=== PATIENT | male | born 1945 | race Caucasian/White ===

== ENCOUNTER 2017-10-11 11:11 | Emergency (ER) | payer MEDICARE ==
--- NOTE | 2017-10-11 13:12 | RAD ---
INDICATION: Bilateral hip pain COMPARISON: CT August 04, 2016 TECHNIQUE: An AP view of the pelvis and AP views of the hip in neutral and abducted position were obtained FINDINGS: Bones: There are no acute bony findings. Joint spaces: There is mild narrowing about the right hip joint space with sclerosis about the acetabulum. There is advanced narrowing about the left hip joint space with obliteration of joint space superiorly. There is sclerosis acetabulum. There is mild deformity of the femoral head with bony spur formation. SI joints/symphysis: The SI joints and symphysis are intact. Other: There is spurring of the lower lumbar spine. There are vascular calcifications. IMPRESSION: MILD OSTEOARTHRITIC CHANGE RIGHT HIP. ADVANCED OSTEOARTHRITIC CHANGE LEFT
--- NOTE | 2017-10-11 13:19 | RAD ---
INDICATION: Low back pain COMPARISON: December 10, 2012 TECHNIQUE: Routine PA, lateral, and oblique imaging was performed . FINDINGS: Bones: There are no acute bony findings. There are arthritic changes consisting of prominent multilevel degenerative spur formation with endplate sclerosis. There is facet overgrowth at L4-L5 and L5-S1. Alignment: Normal Disc spaces: There is moderate narrowing about L4-L5 Soft tissues: There are no soft tissue abnormalities. IMPRESSION: MULTILEVEL DEGENERATIVE SPURRING. DEGENERATIVE DISEASE L4-L5. NO ACUTE FINDINGS. NO SIGNIFICANT INTERVAL CHANGES.
--- NOTE | 2017-10-11 13:32 | ED ---
Back Pain - HPI Summary HPI Summary: 72 male presents to ED with complaints of worsening lower back/hip pain that began about 2 weeks ago. Patient states he has known arthritis but this pain feels a little worse than normal. States it sometimes radiates into his knees. No abdominal pain, upper/mid back pain, weakness, numbness/tingling, saddle anesthesia and trauma/injury. Does admit to playing golf, exercising and recently helped clean up a tree. States he tries to continue being active, but feels it worsens his pain at times. No bladder/bowel incontinence or urinary symptoms. No know tick bite or concern for lymes disease. Denies fever/chills, vomiting, rash and bruising. No swelling. PMHx includes HTN and high cholesterol that he takes medication for. No other complaints. Has tried aleve and then switched to tylenol, both gave some relief however not completely. States this morning when he went from standing to sitting on toilet he had excruciating pain. Changing positions worsens his pain. - History of Current Complaint Chief Complaint: EDBackInjuryPain Stated Complaint: BACK/HIP PAIN Time Seen by Provider: 10/11/17 11:32 Hx Obtained From: Patient Onset/Duration: Sudden Onset, Lasting Weeks, Still Present, Worse Since Onset/Duration: Started Weeks Ago, Still Present, Worse Since Timing: Constant Back Pain Location: Is Discrete @ - lower back/hips. began on left and then into right side, knees Severity Initially: Mild Severity Currently: Moderate Pain Intensity: 9 Pain Scale Used: 0-10 Numeric Character: Dull, Aching Aggravating Symptom(s): Movement Alleviating Symptom(s): Rest, Position, OTC Meds Associated Signs And Symptoms: Negative: Swelling, Redness, Bruising, Fever, Weakness, Numbness, Tingling, Abdominal Pain, Flank Pain, Bladder Incontinence, Bowel Incontinence, Pain with Weight Bearing - Risk Factors AAA Risk Factors: Hypertension, Atherosclerosis TAD Risk Factors: Hypertension Cauda Equina Risk Factors: Negative Epidural Abscess Risk Factors: Negative - Allergies/Home Medications Allergies/Adverse Reactions: Allergies Allergy/AdvReac Type Severity Reaction Status Date / Time No Known Allergies Allergy Verified 10/11/17 11:29 PMH/Surg Hx/FS Hx/Imm Hx Endocrine/Hematology History: Reports: Hx Anticoagulant Therapy - 81MG PO ASA DAILY Cardiovascular History: Reports: Hx Hypercholesterolemia, Hx Hypertension - CONTROLLED WITH DAILY MEDS, Other Cardiovascular Problems/Disorders - CHOLESTEROL CONTROL WITH MEDS Respiratory History: Reports: Hx Sleep Apnea - CPAP user, compliant GI History: Reports: Other GI Disorders - OCCASIONAL CONSTIPATION History: Reports: Hx Benign Prostatic Hyperplasia, Other Problems/ Disorders - ENLARGE PROSTATE HX Musculoskeletal History: Reports: Hx Arthritis - LOW BACK PAIN, Hx Gout, Other Musculoskeletal History - hx cellulitis Sensory History: Reports: Hx Contacts or Glasses - GLASSES, Hx Hearing Aid - BILATERAL EARS, Hx Hearing Problem Opthamlomology History: Reports: Hx Contacts or Glasses - GLASSES Neurological History: Reports: Hx Migraine - NONE IN MANY YEARS, Other Neuro Impairments/Disorders - L-SPINE X-RAYS SHOWED BONE SPURS AND DEGENERATIVE CHANGES - Cancer History Cancer Type, Location and Year: hx skin cancer - Surgical History Surgery Procedure, Year, and Place: RIGHT SHOULDER ROTATOR CUFF REPAIR [facility]. 2002 ING HERNIA REPAIR [facility]. TURP Hx Anesthesia Reactions: No - Immunization History Immunizations Up to Date: Yes Infectious Disease History: No Infectious Disease History: Denies: Traveled Outside the [place] in Last 30 Days - Family History Known Family History: Positive: Hypertension - Social History Alcohol Use: Rare Alcohol Amount: GLASS OF WINE Substance Use Type: Reports: None Smoking Status (MU): Former Smoker Type: Cigarettes Amount Used/How Often: 1 ppd Length of Time of Smoking/Using Tobacco: 23 years Have You Smoked in the Last Year: No Review of Systems Constitutional: Negative Cardiovascular: Negative Respiratory: Negative Gastrointestinal: Negative Positive: Arthralgia, Myalgia Skin: Negative Neurological: Negative All Other Systems Reviewed And Are Negative: Yes Physical Exam Triage Information Reviewed: Yes Vital Signs On Initial Exam: Initial Vitals Temp Pulse Resp BP Pulse Ox 97.2 F 97 18 165/95 96 10/11/17 11:23 10/11/17 11:23 10/11/17 11:23 10/11/17 11:23 10/11/17 11:23 elevated BP however patient is in pain, just took HTN medication [employer] Vital Signs Reviewed: Yes Appearance: Positive: Well-Appearing, No Pain Distress, Well-Nourished Skin: Positive: Warm, Skin Color Reflects Adequate Perfusion, Dry. Negative: Cold, Cyanosis @, Jaundiced, Pale, Erythema @ Head/Face: Positive: Normal Head/Face Inspection Eyes: Positive: Conjunctiva Clear ENT: Positive: Hearing grossly normal Neck: Positive: Supple, Nontender, No Lymphadenopathy Respiratory/Lung Sounds: Positive: Clear to Auscultation, Breath Sounds Present. Negative: Rales, Rhonchi, Wheezes Cardiovascular: Positive: Normal, RRR, Pulses are Symmetrical in both Upper and Lower Extremities - 2+ pedal and radial. Negative: Murmur, Rub Abdomen Description: Positive: Nontender, No Organomegaly, Soft. Negative: CVA Tenderness (R), CVA Tenderness (L), Distended, Peritoneal Signs Bowel Sounds: Positive: Present Musculoskeletal: Positive: Normal, Strength/ROM Intact, Pain @ - with lower extremity movement against resistance, Other - no crepitus step off or obvious deformity. patient does point to pain at b/l lateral L2-L5 level without any spinal tenderness or pain. also in the gluteal hip region. Negative: Limited @ , Interruption @, Edema Left, Edema Right Neurological: Positive: Normal, Sensory/Motor Intact - intact and normal, Alert , Oriented to Person Place, Time, CN Intact II-III, Reflexes Intact, NV Bundle Intact Distally, Normal Gait - Devin Coma Scale Coma Scale Total: 15 Diagnostics - Vital Signs Vital Signs Temp Pulse Resp BP Pulse Ox 10/11/17 11:23 97.2 F 97 18 165/95 96 - Laboratory Result Diagrams: 10/11/17 13:08 10/11/17 13:08 Lab Statement: Any lab studies that have been ordered have been reviewed, and results considered in the medical decision making process. - Radiology hip/pelvis Xray Interpretation: Positive (See Comments) - MILD OSTEOARTHRITIC CHANGE RIGHT HIP. ADVANCED OSTEOARTHRITIC CHANGE LEFT Radiology Interpretation Completed By: Radiologist - and myself lumbosacral spine Xray Interpretation: No Acute Changes - MULTILEVEL DEGENERATIVE SPURRING. DEGENERATIVE DISEASE L4-L5. NO ACUTE FINDINGS. NO SIGNIFICANT INTERVAL CHANGES. Radiology Interpretation Completed By: Radiologist Back Pain Course/Dx - Course Course Of Treatment: xrays obtained and showed significant arthritis in hips and low back, that has worsened/advanced when compared. appears to be cause of patient's pain. given toradol and lidoderm patch. labs obtained and unremarkable besides some mild anemia. pending lyme results. patient will be informed once obtained. will give muscle relaxer, steroid and supplement with tylenol to help with pain/arthritis. no other concerning symptoms at this time. no other emergent etiology of concern at this time, without weakness, cauda equina symptoms etc, nomral PE exam and vitals. follow up pcp to discuss possibly beginning daily arthritis medication and for monitoring. Patient is aware of worsening signs and symptoms. - Diagnoses Differential Diagnosis/HQI/PQRI: Positive: Arthritis, Fracture, Herniated Disc, Strain, Sprain Provider Diagnoses: Hip pain, Low back pain, Osteoarthritis Discharge - Discharge Plan Condition: Stable Disposition: HOME Prescriptions: Cyclobenzaprine TAB* [Flexeril 10 MG TAB*] 10 mg PO BEDTIME #10 tab Methylprednisolone [Medrol Dosepak 4 MG*] 4 mg PO .SEE JAY INSTRUCTION #21 tab Patient Education Materials: Osteoarthritis (ED), Arthralgia (ED), Arthritis ( ED) Referrals: Asim Quinteros MD [Primary Care Provider] - Additional Instructions: Take prescribed medication as directed, starting tomorrow. You may take the muscle relaxer tonight at bedtime, and tylenol if needed for breakthrough pain. Take steroid dose pack in the morning as directed. Muscle relaxer (flexeril) at bedtime. Tylenol in between daily, as needed. Try heating pad and rest. Sit in most comfortable position. Also recommend lidoderm patches or icey/hot topical gel to help with pain, please remember to take them off as instructed. Follow up with primary care doc to discuss further treatment options to help with your arthritis. Any new or worsening symptoms please return and seek medical attention as we discussed.
[2017-10-11 13:34] LABS: Hematocrit 39 % (42-52); Hemoglobin 13.1 g/dl (14.0-18.0); Mean Corpuscular HGB Conc 34 g/dl (31-36); Mean Corpuscular Hemoglobin 29 pg (27-31); Mean Corpuscular Volume 84 fL (80-94); Mean Platelet Volume 8 um3 (7.4-10.4); Red Blood Count 4.61 10^6/ul (4.0-5.4); Red Cell Distribution Width 15 % (10.5-15); White Blood Count 11.5 10^3/ul (3.5-10.8)
[2017-10-11 13:45] LABS: Albumin 3.9 g/dL (3.2-5.2); BUN/Creatinine Ratio 17.7 (8-20); C Reactive Protein 4.95 mg/L (< 5.00); Calcium 9.7 mg/dL (8.6-10.3); EGFR African American 124.3 (>60); EGFR Non-African American 96.7 (>60); Globulin 2.8 g/dL (2-4); Potassium 3.8 mmol/L (3.5-5.0); Total Bilirubin 0.5 mg/dL (0.2-1.0); Total Protein 6.7 g/dL (6.4-8.9)
[2017-10-11] MEDS ORDERED: Ketorolac INJ* 30 MG/ML 1 ML VIAL IM ONE (13:46)
[2017-10-11] MEDS ORDERED: predniSONE TAB* 20 MG PO ONE (13:46)
[2017-10-11 14:29] LABS: Urine Bilirubin Negative (Negative); Urine Glucose Negative (Negative); Urine Nitrite Negative (Negative)
[2017-10-11] MEDS ORDERED: Lidocaine PATCH 5%* 1 PATCH ONE (14:41)
[2017-10-11 14:52] VITALS: BP 154/80
[2017-10-11] MEDS ORDERED: Lidocaine PATCH 5%* 1 PATCH TRANSDERM SCH (15:00)
[2017-10-11] MEDS ORDERED: Lidocaine Patch REMOVE* 1 NOTE MISC PATCH OFF SCH (21:00)
[2017-10-17 04:03] LABS: Vitamin D 1,25-Dihydroxy 43 pg/mL (18-64)
== END 2017-10-11 14:50 | disposition home or self-care (01) ==
LOC: ED 11:11
DX: M25.559 Pain in unspecified hip (principal); M54.5 Low back pain; M19.90 Unspecified osteoarthritis, unspecified site
CPT/HCPCS: 36415; 72110; 73523; 80053; 81003; 82306; 82652; 85025; 86140; 86618; 99282; A9270-GY; J1885; J7512

== ENCOUNTER 2018-08-28 08:00 | Inpatient (IN) | payer MEDICARE ==
--- NOTE | 2018-08-17 14:33 | HP ---
HISTORY AND PHYSICAL: DATE OF ADMISSION/SURGERY: 08/28/18 DATE OF OFFICE VISIT: 08/17/18 SURGEON: Geri Alfaro MD * (DICTATED BY FRANK WISEMAN) PROCEDURE: Left total hip arthroplasty. CHIEF COMPLAINT: Left hip pain. HISTORY OF PRESENT ILLNESS: Mr. Fishman is a 73-year-old gentleman with severe left hip pain. He has failed conservative treatment and elected to proceed with a left total hip arthroplasty. PAST MEDICAL HISTORY: Hypertension, sleep apnea, and BPH. PAST SURGICAL HISTORY: Cholecystectomy, hernia repair, and TURP. CURRENT MEDICATIONS: 1. Lisinopril. 2. Vitamin D. 3. Diltiazem 180 mg 2 tabs daily. 4. Pravastatin sodium 10 mg daily. 5. Triamterene/hydrochlorothiazide 37.5/25 mg daily. 6. Centrum Silver daily. 7. Multivitamin every day. ALLERGIES: None. FAMILY HISTORY: Stroke, coronary artery disease, and colon cancer. SOCIAL HISTORY: He is a 73-year-old gentleman, lives alone. He does not smoke or use drugs. He uses occasional alcohol. REVIEW OF SYSTEMS: A complete 14-point review of systems was reviewed with the patient. It is all negative and noncontributory. He denies history of DVT, PE , hepatitis, HIV, or anesthesia problems. PHYSICAL EXAMINATION GENERAL: He is well developed, well nourished, in no acute distress. VITAL SIGNS: He stands 72 inches tall, weighs 270 pounds. His blood pressure 154/86 and his heart rate is 72. HEENT: Normocephalic, atraumatic. NECK: Supple. No palpable lymph nodes. PULMONARY: The lungs are clear to auscultation bilaterally. CARDIO: Regular rate and rhythm. Strong S1, S2. ABDOMEN: Soft, nontender, nondistended. MUSCULOSKELETAL: Left lower extremity: The skin is intact. There are no open wounds or abrasions. He walks with an antalgic-type gait favoring his left hip. He has 80 degrees of hip flexion with severe pain. Internal and external rotation reproduces severe groin pain, and he has decreased range of motion with internal and external rotation. He has 2+ dorsalis pedis pulse. Intact sensation in his lower extremity. Muscle group strengths are intact at 5/5. NEUROLOGIC: He is alert and oriented x3. ASSESSMENT AND PLAN: Mr. Fishman is a 73-year-old gentleman with end-stage osteoarthritis to the left hip. He has failed conservative treatment and elected to proceed with a left total hip arthroplasty, which is scheduled for with Dr. Alfaro. Dr. Alfaro discussed the risks and the benefits of the surgery at today's visit and all of his questions were answered. He will follow up with Dr. Alfaro 2 weeks after the surgery. FRANK WISEMAN [id number]/[facility] #: [id number]
[~2018-08-28 08:00] MED LIST: Buffered Lidocaine 0.9% SYRIN* 5 ML/SYR SYRINGE INTRADERM ONE; Dexamethasone IV* 4 MG/ML 1 ML (4 MG) IV SLOW PU ONE; Famotidine IV* 10 MG/ML 2 ML (20 mg) IV ONE
--- OUTSIDE RECORDS SUMMARY | 2018-08-28 09:26 | XMS REPORT ---
:1945 External Reference #:[id number] Author Organization [facility] Address [address] [address] [place] [address] Phone [phone] Care Team Providers Name Role Phone Asim Quinteros III, MD Primary Care Physician Unavailable Payers Type Date Identification Numbers Payment Provider Subscriber Health Maintenance Policy Number: Medicare Blue o Theo Ruiz (O) [id number] PayID: [id number] [address] [address] [place] [address] Problems Date Description Provider Status Onset: 01/02/2014 Benign essential hypertension Asim Quinteros M.D. Active Onset: 01/02/2014 Pure hypercholesterolemia Asim Quinteros M.D. Active Onset: 01/02/2014 Benign prostatic hypertrophy with Asim Quinteros M.D. Active outflow obstruction Onset: 02/24/2014 Obstructive sleep apnea of adult Wen Deras DNP, Active RN, [employer]ER-BC Note: Severe on CPAP auto Onset: 09/29/2016 Essential hypertension Asim Quinteros M.D. 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 Vitamin D 02/19 Active Capsules 2000Unit 1 by mouth every day Diltiazem HCL ER 08/10 Active Caps ER 180mg 180ca take two Asim Martin Coated Beads 24HR ps capsules Neli, by mouth M.D. once daily Pravastatin Sodium 07/08 Active Tablets 10mg 90tab 1 by Asim Martin s mouth Neli, every day M.D. Triamterene/Hydrochl 07/08 Active Tablets 37.5-25mg 90tab take one Asim Martin orothiazide s tablet by Neli, mouth M.DDeena once daily Centrum Silver Active Tablets 1 by Unknown / mouth every day [place] 08/24 Hx Tablets 5-325mg 20tab 1-2 tabs Grace Chay /2015 s by mouth Jovan, - every 4 MD 02/19 hours needed for stronger pain Diltiazem HCL ER 07/08 Hx Caps ER 180mg 180ca 2 by Asim Martin /2013 24HR ps mouth Neli, - every day M.D. 08/10 Furosemide 07/08 Hx Tablets 20mg 30tab 1 by Asim Martin s mouth Neli, - every M.D. 06/06 prn Multi For Him 50+ 07/08 Hx Tablets 1 by Asim Martin mouth Neli, - every day M.D. 02/19 Lisinopril 07/08 Hx Tablets 5mg 90tab take one Asim Martin s tablet by Neli, - mouth M.D. 07/12 daily Pravastatin Sodium 00 Hx Tablets 10mg Unknown /0000 - 07/08 Furosemide 00 Hx Tablets 20mg Unknown / - 07/08 Diltiazem CD Hx Caps ER 180mg Unknown / 24HR - 07/08 Lisinopril Hx Tablets 5mg Unknown /0000 - 07/08 Triamterene/Hydrochl Hx Tablets 37.5-25mg Unknown orothiazide / - 07/08 Hydrochlorothiazide Hx Tablets 25mg Unknown / - 12/11 Aspirin Ec Lo-Dose Hx Tablets 81mg 90tab [address] stella german. III, - Asim 10/17 MD Mario Fish Oil Burp-Less Hx Capsules 500mg Unknown / - 01/13 Immunizations CPT Code Status Date Vaccine Lot # [id number] Given 08/18/2017 Pneumococcal Conjugate Vaccine 13 Valent For Intramuscular Use 12012 Given 08/17/2017 Influenza Virus Vaccine, Quadrivalent, Split, Preservative Free [id number] Given 09/29/2016 Tdap - Tetanus/Diptheria/Acellular Pertussis [id number] 75628 Given 08/05/2016 Influenza Virus Vaccine, Quadrivalent, Split, [id number] Preservative Free 72346 Given 01/13/2015 Pneumococcal Conjugate Vaccine 13 Valent For [id number] Intramuscular Use 94363 Given 09/10/2014 Flu Vaccine Split Virus Preservative Free For Indiv [id number] 3Yr Older 21449 Given 09/07/2013 Flu Vaccine Split Virus Preservative Free For Indiv 3Yr Older [id number] Given 08/29/2011 Fluzone Vaccine 66800 Given 11/20/2009 Zoster (Zostavax) 07454 Given 11/20/2009 Pneumonia Vaccine 68304 Given 11/20/2005 Tetanus And Diptheria (Td) For Adult Use Preservative Free Vital Signs Date Vital Result Comment 08/08/2018 Height 72 inches 6'0" Weight 271.00 lb Heart Rate 72 /min BP Systolic Sitting 122 mmHg BP Diastolic Sitting 64 mmHg O2 % BldC Oximetry 97 % BMI (Body Mass Index) 36.8 kg/m2 07/30/2018 Height 72 inches 6'0" Weight 269.00 lb Heart Rate 79 /min BP Systolic 138 mmHg BP Diastolic 76 mmHg Respiratory Rate 12 /min Pain Level 7 BMI (Body Mass Index) 36.5 kg/m2 07/12/2018 Height 72 inches 6'0" Weight 274.00 lb Heart Rate 89 /min BP Systolic Sitting 140 mmHg BP Diastolic Sitting 70 mmHg O2 % BldC Oximetry 95 % BMI (Body Mass Index) 37.2 kg/m2 03/07/2018 Height 72 inches 6'0" Weight 279.00 lb Heart Rate 80 /min BP Systolic Sitting 140 mmHg BP Diastolic Sitting 82 mmHg Respiratory Rate 14 /min O2 % BldC Oximetry 96 % BMI (Body Mass Index) 37.8 kg/m2 10/18/2017 Height 72 inches 6'0" Weight 268.00 lb Heart Rate 80 /min BP Systolic Sitting 128 mmHg BP Diastolic Sitting 68 mmHg Body Temperature 98.2 F O2 % BldC Oximetry 98 % BMI (Body Mass Index) 36.3 kg/m2 06/06/2017 Height 73 inches 6'1" Weight 283.00 lb Heart Rate 85 /min BP Systolic Sitting 142 mmHg BP Diastolic Sitting 78 mmHg Body Temperature 97.9 F O2 % BldC Oximetry 94 % BMI (Body Mass Index) 37.3 kg/m2 02/20/2017 Height 73 inches 6'1" Weight 271.00 lb Heart Rate 109 /min BP Systolic Sitting 166 mmHg BP Diastolic Sitting 94 mmHg Respiratory Rate 14 /min O2 % BldC Oximetry 98 % BMI (Body Mass Index) 35.8 kg/m2 09/29/2016 Height 70.5 inches 5'10.50" Weight 267.00 lb Heart Rate 80 /min BP Systolic 150 mmHg BP Diastolic 80 mmHg O2 % BldC Oximetry 98 % BMI (Body Mass Index) 37.8 kg/m2 08/24/2016 Height 70.5 inches 5'10.50" Weight 264.00 lb Heart Rate 84 /min BP Systolic Sitting 140 mmHg BP Diastolic Sitting 82 mmHg Respiratory Rate 18 /min Body Temperature 98.2 F BMI (Body Mass Index) 37.3 kg/m2 08/05/2016 Height 70.5 inches 5'10.50" Weight 270.00 lb Heart Rate 65 /min BP Systolic 140 mmHg BP Diastolic 80 mmHg Body Temperature 97.5 F O2 % BldC Oximetry 98 % BMI (Body Mass Index) 38.2 kg/m2 02/02/2016 Height 70.5 inches 5'10.50" Weight 283.00 lb Heart Rate 92 /min BP Systolic 138 mmHg BP Diastolic 74 mmHg Respiratory Rate 16 /min O2 % BldC Oximetry 97 % BMI (Body Mass Index) 40.0 kg/m2 07/13/2015 Height 70.5 inches 5'10.50" Weight 284.50 lb Heart Rate 79 /min BP Systolic Sitting 144 mmHg BP Diastolic Sitting 74 mmHg O2 % BldC Oximetry 97 % BMI (Body Mass Index) 40.2 kg/m2 01/13/2015 Height 70.5 inches 5'10.50" Weight 287.75 lb Heart Rate 82 /min BP Systolic Sitting 128 mmHg 148/74 initially BP Diastolic Sitting 70 mmHg 148/74 initially O2 % BldC Oximetry 98 % BMI (Body Mass Index) 40.7 kg/m2 12/12/2014 Height 70.5 inches 5'10.50" Weight 280.00 lb with shoes on Heart Rate 79 /min BP Systolic Sitting 158 mmHg BP Diastolic Sitting 90 mmHg Respiratory Rate 20 /min Body Temperature 97.9 F O2 % BldC Oximetry 98 % BMI (Body Mass Index) 39.6 kg/m2 Neck Circumference in inches 18 07/01/2014 Weight 279.00 lb Heart Rate 82 /min BP Systolic Sitting 126 mmHg BP Diastolic Sitting 82 mmHg 01/02/2014 Height 71.5 inches 5'11.50" Weight 297.00 lb Heart Rate 82 /min BP Systolic Sitting 144 mmHg BP Diastolic Sitting 84 mmHg BMI (Body Mass Index) 40.8 kg/m2 Results Test Date Test Result H/L Range Note Basic Metabolic Panel 07/31/2018 Sodium 136 mmol/L 135-145 Potassium 4.0 mmol/L 3.5-5.0 Chloride 102 mmol/L 101-111 Co2 Carbon Dioxide 28 mmol/L 22-32 Anion Gap 6 mmol/L 2-11 Glucose 167 mg/dL High 70-100 Blood Urea Nitrogen 15 mg/dL 6-24 Creatinine 0.82 mg/dL 0.67-1.17 BUN/Creatinine Ratio 18.3 8-20 Calcium 9.3 mg/dL 8.6-10.3 Egfr Non- 92.4 >60 Egfr 111.7 >60 1 Laboratory test finding 07/12/2018 Hemoglobin A1c 5.8 5-7 Urinalysis Profile 10/11/2017 Urine Color Yellow Urine Appearance Clear Urine Specific [place] 1.008 Low 1.010-1.030 Urine pH 8.0 5-9 Urine Urobilinogen Negative Negative Urine Ketones Negative Negative Urine Protein Negative Negative Urine Leukocytes Negative Negative Urine Blood Negative Negative Urine Nitrite Negative Negative Urine Bilirubin Negative Negative Urine Glucose Negative Negative CBC Auto Diff 10/11/2017 White Blood Count 11.5 10^3/uL High 3.5-10.8 Red Blood Count 4.61 10^6/uL 4.0-5.4 Hemoglobin 13.1 g/dL Low 14.0-18.0 Hematocrit 39 % Low 42-52 Mean Corpuscular Volume 84 fL 80-94 Mean Corpuscular Hemoglobin 29 pg 27-31 Mean Corpuscular HGB Conc 34 g/dL 31-36 Red Cell Distribution Width 15 % 10.5-15 Platelet Count 286 10^3/uL 150-450 Mean Platelet Volume 8 um3 7.4-10.4 Abs Neutrophils 8.5 10^3/uL High 1.5-7.7 Abs Lymphocytes 1.6 10^3/uL 1.0-4.8 Abs Monocytes 0.7 10^3/uL 0-0.8 Abs Eosinophils 0.6 10^3/uL 0-0.6 Abs Basophils 0.1 10^3/uL 0-0.2 Abs Nucleated RBC 0.01 10^3/uL Granulocyte % 74.2 % 38-83 Lymphocyte % 14.0 % Low 25-47 Monocyte % 6.4 % 1-9 Eosinophil % 4.9 % 0-6 Basophil % 0.5 % 0-2 Nucleated Red Blood Cells % 0.1 Comp Metabolic Panel 10/11/2017 Sodium 134 mmol/L 133-145 Potassium 3.8 mmol/L 3.5-5.0 Chloride 101 mmol/L 101-111 Co2 Carbon Dioxide 29 mmol/L 22-32 Anion Gap 4 mmol/L 2-11 Glucose 93 mg/dL 70-100 Blood Urea Nitrogen 14 mg/dL 6-24 Creatinine 0.79 mg/dL 0.67-1.17 BUN/Creatinine Ratio 17.7 8-20 Calcium 9.7 mg/dL 8.6-10.3 Total Protein 6.7 g/dL 6.4-8.9 Albumin 3.9 g/dL 3.2-5.2 Globulin 2.8 g/dL 2-4 Albumin/Globulin Ratio 1.4 1-3 Total Bilirubin 0.50 mg/dL 0.2-1.0 Alkaline Phosphatase 55 U/L 34-104 Alt 17 U/L 7-52 Ast 18 U/L 13-39 Egfr Non- 96.7 >60 Egfr 124.3 >60 2 Laboratory test finding 10/11/2017 C Reactive Protein 4.95 mg/L < 5.00 3 Vitamin D Total 25(Oh) 49.2 ng/mL 20-50 Lyme Disease Serology Negative Negative 4 Vitamin D, 1,25 Dihydroxy 43 pg/mL 18-64 5 Laboratory test finding 09/27/2016 PSA Diagnostic 0.825 ng/mL 0-4.0 6 Laboratory test finding 08/04/2016 Lactic Acid 1.5 mmol/L 0.5-2.0 7 Comp Metabolic Panel 08/04/2016 Sodium 136 mmol/L 133-145 Potassium 3.6 mmol/L 3.5-5.0 Chloride 101 mmol/L 101-111 Co2 Carbon Dioxide 27 mmol/L 22-32 Anion Gap 8 mmol/L 2-11 Glucose 158 mg/dL High 70-100 Blood Urea Nitrogen 15 mg/dL 6-24 Creatinine 0.89 mg/dL 0.67-1.17 BUN/Creatinine Ratio 16.9 8-20 Calcium 8.9 mg/dL 8.6-10.3 Total Protein 6.7 g/dL 6.4-8.9 Albumin 3.9 g/dL 3.2-5.2 Globulin 2.8 g/dL 2-4 Albumin/Globulin Ratio 1.4 1-3 Total Bilirubin 0.40 mg/dL 0.2-1.0 Alkaline Phosphatase 51 U/L 34-104 Alt 25 U/L 7-52 Ast 20 U/L 13-39 Egfr Non- 84.5 >60 Egfr 108.7 >60 8 Laboratory test finding 08/04/2016 Lipase 26 U/L 11.0-82.0 C Reactive Protein 4.56 mg/L < 5.00 9 CBC Auto Diff 08/04/2016 White Blood Count 13.5 10^3/uL High 3.5-10.8 Red Blood Count 4.58 10^6/uL 4.0-5.4 Hemoglobin 13.4 g/dL Low 14.0-18.0 Hematocrit 40 % Low 42-52 Mean Corpuscular Volume 88 fL 80-94 Mean Corpuscular Hemoglobin 29 pg 27-31 Mean Corpuscular HGB Conc 33 g/dL 31-36 Red Cell Distribution Width 14 % 10.5-15 Platelet Count 280 10^3/uL 150-450 Mean Platelet Volume 8 um3 7.4-10.4 Abs Neutrophils 10.2 10^3/uL High 1.5-7.7 Abs Lymphocytes 1.9 10^3/uL 1.0-4.8 Abs Monocytes 0.6 10^3/uL 0-0.8 Abs Eosinophils 0.6 10^3/uL 0-0.6 Abs Basophils 0.1 10^3/uL 0-0.2 Abs Nucleated RBC 0.01 10^3/uL Granulocyte % 75.7 % 38-83 Lymphocyte % 14.4 % Low 25-47 Monocyte % 4.6 % 1-9 Eosinophil % 4.5 % 0-6 Basophil % 0.8 % 0-2 Nucleated Red Blood Cells % 0.1 Urinalysis Profile 08/04/2016 Urine Color Yellow Urine Appearance Clear Urine Specific [place] 1.010 1.010-1.030 Urine pH 6.0 5-9 Urine Urobilinogen Negative Negative Urine Ketones Negative Negative Urine Protein Negative Negative Urine Leukocytes Trace Negative Urine Blood Negative Negative Urine Nitrite Negative Negative Urine Bilirubin Negative Negative Urine Glucose Negative Negative Urine White Blood Cell Trace(0-5/hpf) Absent Urine Red Blood Cell Trace(0-2/hpf) Absent Urine Bacteria Absent Absent Urine Squamous Epithelial Cell Present Absent Urine Culture And 08/04/2016 Urine Culture SEE RESULT BELOW 10 Sensitivities Laboratory test finding 04/17/2015 Rheumatoid Factor <15 IU/mL <15 11 Holly (Antinuclear Antibodies) Negative Negative Cytoplasmic Neutrophilic AB 04/17/2015 C-Anca Negative Negative P-Anca Negative Negative 12 Hla B27 04/17/2015 Hla B27 Negative 13 Hla B27 Interp See Comment 14 Laboratory test finding 04/17/2015 Erythrocyte Sed Rate 20 mm/Hr 0-40 Angiotensin Converting Enzyme 12 U/L 8 - 53 15 Lyme Disease Serology Negative Negative 16 CBC Auto Diff 04/17/2015 White Blood Count 10.1 10^3/uL 4.8-10.8 Red Blood Count 4.82 10^6/uL 4.0-5.4 Hemoglobin 14.3 g/dL 14.0-18.0 Hematocrit 43 % 42-52 Mean Corpuscular Volume 89 fL 80-94 Mean Corpuscular Hemoglobin 30 pg 27-31 Mean Corpuscular HGB Conc 34 g/dL 31-36 Red Cell Distribution Width 14 % 10.5-15 Platelet Count 288 10^3/uL 150-450 Mean Platelet Volume 9 um3 7.4-10.4 Abs Neutrophils 6.8 10^3/uL 1.5-7.7 Abs Lymphocytes 2.0 10^3/uL 1.0-4.8 Abs Monocytes 0.6 10^3/uL 0-0.8 Abs Eosinophils 0.5 10^3/uL 0-0.6 Abs Basophils 0.2 10^3/uL 0-0.2 Abs Nucleated RBC 0 10^3/uL Granulocyte % 67.2 % 38-83 Lymphocyte % 19.7 % Low 25-47 Monocyte % 6.2 % 1-9 Eosinophil % 5.0 % 0-6 Basophil % 1.9 % 0-2 Nucleated Red Blood Cells % 0 Laboratory test finding 04/17/2015 C Reactive Protein 3.47 mg/L < 5.00 17 Comp Metabolic Panel 06/27/2014 Sodium 139 mmol/L 133-145 Potassium 4.3 mmol/L 3.7-5.6 Chloride 103 mmol/L 101-111 Co2 Carbon Dioxide 29 mmol/L 22-32 Anion Gap 7 mmol/L 2-11 Glucose 112 mg/dL High 70-100 Blood Urea Nitrogen 17 mg/dL 6-24 Creatinine 0.90 mg/dL 0.67-1.17 BUN/Creatinine Ratio 18.9 8-20 Calcium 9.5 mg/dL 8.6-10.3 Total Protein 7.1 g/dL 6.4-8.9 Albumin 4.3 g/dL 3.2-5.2 Globulin 2.8 g/dL 2-4 Albumin/Globulin Ratio 1.5 1-3 Total Bilirubin 0.70 mg/dL 0.2-1.0 Alkaline Phosphatase 51 U/L 34-104 Alt 20 U/L 7-52 Ast 16 U/L 13-39 Egfr Non- 83.9 >60 Egfr 107.9 >60 18 Lipid Profile (Trig/Chol/HDL) 06/27/2014 Triglycerides 76 mg/dL 19 Cholesterol 150 mg/dL 20 HDL Cholesterol 37.1 mg/dL 21 LDL Cholesterol 98 mg/dL 22 Surgical Pathology 02/20/2014 S RUN DATE: 02/24/ <SEE NOTE> 23 1 Because ethnic data is not always readily available, this report includes an eGFR for both -Americans and non- Americans. The National Kidney Disease Education Program (NKDEP) does not endorse the use of the MDRD equation for patients that are not between the ages of 18 and 70, are , have extremes of body size, muscle mass, or nutritional status, or are non- or non-. According to the National Kidney Foundation, irrespective of diagnosis, the stage of the disease is based on the level of kidney function: Stage Description GFR(mL/min/1.73 m(2)) 1 Kidney damage with normal or decreased GFR 90 2 Kidney damage with mild decrease in GFR 60-89 3 Moderate decrease in GFR 30-59 4 Severe decrease in GFR 15-29 5 Kidney failure <15 (or dialysis) 2 Because ethnic data is not always readily available, this report includes an eGFR for both -Americans and non- Americans. The National Kidney Disease Education Program (NKDEP) does not endorse the use of the MDRD equation for patients that are not between the ages of 18 and 70, are , have extremes of body size, muscle mass, or nutritional status, or are non- or non-. According to the National Kidney Foundation, irrespective of diagnosis, the stage of the disease is based on the level of kidney function: Stage Description GFR(mL/min/1.73 m(2)) 1 Kidney damage with normal or decreased GFR 90 2 Kidney damage with mild decrease in GFR 60-89 3 Moderate decrease in GFR 30-59 4 Severe decrease in GFR 15-29 5 Kidney failure <15 (or dialysis) 3 Acute inflammation: >10.00 4 Serologic response to B. burgdorferi infection is not detected, but cannot rule out early infection during which low or undetectable antibody levels to B. burgdorferi may be present. If clinically indicated, a new serum specimen should be submitted in 7-14 days. Test Performed by: [facility] [place] [id number] [address] 5 ADDITIONAL INFORMATION This test was developed and its performance characteristics determined by [facility] in a manner consistent with CLIA requirements. This test has not been cleared or approved by the U.S. Food and Drug Administration. Test Performed by: [facility] [place] [address] 6 Serum levels of PSA measured using the Anum Carlos DXI Hybritech immunoassay should not be interpreted as absolute evidence of the presence or absence of disease. The PSA value should be used in conjunction with other pertinent clinical diagnostic procedures. The values obtained with different assay methods or kits cannot be used interchangeably. 7 [facility] Severe Sepsis and Septic Shock Management Bundle Measure requires all lactic acids initially measuring >2.0 mmol/L be repeated. 8 Because ethnic data is not always readily available, this report includes an eGFR for both -Americans and non- Americans. The National Kidney Disease Education Program (NKDEP) does not endorse the use of the MDRD equation for patients that are not between the ages of 18 and 70, are , have extremes of body size, muscle mass, or nutritional status, or are non- or non-. According to the National Kidney Foundation, irrespective of diagnosis, the stage of the disease is based on the level of kidney function: Stage Description GFR(mL/min/1.73 m(2)) 1 Kidney damage with normal or decreased GFR 90 2 Kidney damage with mild decrease in GFR 60-89 3 Moderate decrease in GFR 30-59 4 Severe decrease in GFR 15-29 5 Kidney failure <15 (or dialysis) 9 Acute inflammation: >10.00 10 SEE RESULT BELOW Name: THEO FISHMAN JR : [address]: Larry Draper MD Acct: [id number] Unit: [id number] AGE: 71 Location: ED Re08/04/16 SEX: M Status: DEP ER SPEC: [id number] ANAHY: 08/04/[address] [facility] [address]: Larry Draper MD REQ: [id number] RECD: 08/04/16 STATUS: COMP PAUL DR: Asim Quinteros III, MD _ SOURCE: URINE SPDESC: ORDERED: Urine Culture Procedure Result Reported Site Urine Culture Final 08/06/16825 ML No growth of clinically significant organisms * ML - MAIN LAB ([facility]) . END OF REPORT * ML=Testing performed at Main Lab DEPARTMENT OF PATHOLOGY, [address] [place] [address] Rubin Galicia M.D. Director [facility] # [id number] 11 Test Performed by: [address] [place] [address] Family Services Manager: Biju Samuel II, M.D., Ph.D. 12 Negative for cANCA and pANCA patterns by immunofluorescence. Test Performed by: [place] [address] Family Services Manager: Biju Samuel II, M.D., Ph.D. 13 REFERENCE VALUE Not Applicable 14 RESULT: HLA-B27 antigen was not detected. ADDITIONAL INFORMATION Method: Flow Cytometry Performing Laboratory CLIA# [id number] Test Performed by: [place] [address] Family Services Manager: Biju Samuel II, M.D., Ph.D. 15 Test Performed by: [place] [address] Family Services Manager: Biju Samuel II, M.D., Ph.D. 16 Serologic response to B. burgdorferi infection is not detected, but cannot rule out early infection during which low or undetectable antibody levels to B. burgdorferi may be present. If clinically indicated, a new serum specimen should be submitted in 7-14 days. Test Performed by: [place] [address] Family Services Manager: Biju Samuel II, M.D., Ph.D. 17 Acute inflammation: >10.00 18 Because ethnic data is not always readily available, this report includes an eGFR for both -Americans and non- Americans. The National Kidney Disease Education Program (NKDEP) does not endorse the use of the MDRD equation for patients that are not between the ages of 18 and 70, are , have extremes of body size, muscle mass, or nutritional status, or are non- or non-. According to the National Kidney Foundation, irrespective of diagnosis, the stage of the disease is based on the level of kidney function: Stage Description GFR(mL/min/1.73 m(2)) 1 Kidney damage with normal or decreased GFR 90 2 Kidney damage with mild decrease in GFR 60-89 3 Moderate decrease in GFR 30-59 4 Severe decrease in GFR 15-29 5 Kidney failure <15 (or dialysis) 19 Desirable <150 Borderline high 150-199 High 200-499 Very High >500 20 Desirable <200 Borderline high 200-239 High >239 21 Low <40 Desirable: 40-60 High: >60 22 Desirable <100 Near Optimal 100-129 Borderline high 130-159 High 160-189 Very High >189 23 RUN DATE: 02/24/14 [facility] LAB LIVE PAGE 1 RUN TIME: [address] [place] [address] Specimen Inquiry Name: SRAVANTHITHEO GARZA JR : [address]: Shantanu Villareal MD Acct: [id number] Unit: [id number] AGE: 69 Location: [facility] Re02/20/14 SEX: M Status: REG REF SPEC: [id number] ANAHY: 02/20/14- SUBM DR: Shantanu Villareal MD REQ: [id number] RECD: 02/20/148 STATUS: STEFANY GALLEGOS DR: Asim Quinteros III, MD _ ORDERED: LEVEL IV/3 FINAL DIAGNOSIS 1. Colon, right, biopsy: A. Tubular adenoma. B. No high grade dysplasia or malignancy. 2. Colon, descending, biopsy: A. Tubular adenoma. B. No high grade dysplasia or malignancy. 3. Colon, rectum, biopsy: Hyperplastic polyp. CLINICAL HISTORY Screening colonoscopy with personal history of polyps POST-OPERATIVE DIAGNOSIS Screening colonoscopy into cecum, prep generally good - 3 small polyps removed, sigmoid diverticulosis GROSS DESCRIPTION 1. The specimen is received in formalin labeled Thoe Fishman Jr., Biopsy Right Colon Polyp, and consists of multiple portions of [place]-white tissue that in aggregate measure 0.4 x 0.3 x 0.2 cm. Submitted entirely, one cassette. 2. The specimen is received in formalin labeled Durgary E. [place] ., Biopsy Descending Colon Polyp, and consists of a 0.6 x 0.2 x 0.2 cm. [place]-white tissue. Submitted entirely, one cassette. 3. The specimen is received in formalin labeled Theo EDeena Sravanthi Jr., Biopsy Rectal CONTINUED ON NEXT PAGE * ML=Testing performed at Main Lab DEPARTMENT OF PATHOLOGY, [facility] [email or web address] [place], [place] [address] Rubin Galicia M.D. Director [facility] Permit #[id number] RUN DATE: 02/24/14 [facility] LAB LIVE PAGE 2 RUN TIME: 1981 [facility] [employer] [place], [place] [address] Specimen Inquiry Patient: THEO FISHMAN JR [id number] (Continued) GROSS DESCRIPTION (Continued) GROSS DESCRIPTION (Continued) Polyp, and consists of two portions of [place]-white tissue that in aggregate measure 0.6 x 0.3 x 0.2 cm. Submitted entirely, one cassette. 1. Signed (signature on file) Rubin Galicia MD 1430 END OF REPORT * ML=Testing performed at Main Lab DEPARTMENT OF PATHOLOGY, [address] [place] [address] Rubin Galicia M.D. Director [facility] Permit #[id number] Procedures Date CPT Code Description Status Comment 09/06/2016 13027 Repair Hernia Epigastric, Completed Reducible 09/06/2016 83416 Repair Hernia Epigastric, Completed Reducible 03/17/2014 84770 Polysomnography Sleep Staging 4+ Completed Parameters W/Cpap 02/24/2014 70000 Polysomnography Sleep Staging 4+ Completed Parameters W/Cpap 02/20/2014 Colonoscopy Completed 01/16/2014 Diabetic Retinal Eye Exam Completed Document: 01/16/14 - Hearing Test/Ruparelia 01/02/2014 80080 EKG Tracing & Interpretation Completed 12/17/2012 05686 EKG, Interpretation Only Completed 11/20/2009 Colonoscopy Completed Encounters Type Date Location Provider CPT E/M Dx Office Visit 07/30/2018 Orthopedic Services Geri Alfaro M.D. 88473 M25.552 8:30a Of Nicolás M16.12 Office Visit 03/07/2018 1:00p Pulmonology And Sleep Wen Deras, [address] G47.33 Services Of Sadia KRUGER RN, WINDOWS APPLICATION PACKAGER-BC Office Visit 10/18/2017 2:30p [facility] Asim Quinteros, [address] M25.552 - Zelalem Mcmanus Office Visit 06/06/2017 10:00a [facility] Asim Quinteros, 10481 I10 - Zelalem Mcmanus E78.00 G47.33 N40.1 Office Visit 02/20/2017 2:00p [facility] [address] G47.33 [facility] E66.09 Office Visit 09/29/2016 2:00p [facility] - Asim Quinteros, 87899 I10 Zelalem Mcmanus E78.00 G47.33 Z23 Office Visit 08/05/2016 11:00a [facility] Asim Quinteros, 94733 K43.9 - Zelalem Mcmanus Z23 Office Visit 02/02/2016 2:00p [facility] Sleep Wen Deras, 44845 G47.33 [facility] YAZAN KRUGER, [facility] Office Visit 07/13/2015 10:00a [facility] Asim Quinteros, 07465 401.1 - Luís Mcmanus 272.0 327.23 Office Visit 12/12/2014 9:00a [facility] Sleep Wen Deras 91281 327.23 [facility] YAZAN KRUGER, [facility] Office Visit 07/01/2014 9:40a [facility] Asim Quinteros, 24540 401.1 - Luís Mcmanus 272.0 327.23 Office Visit 02/13/2014 1:44p [facility] Ruben Del Real, 57140 780.53 M.DDeena Office Visit 01/02/2014 10:20a [facility] Asim Quinteros, 94104 401.1 - Luís Mcmanus 272.0 724.2 600.01 274.00 389.9 V76.51 Office Visit 02/05/2010 2:45a [facility],adrianna Townsend M.D. 56973 401.9 Hospitalists Office Visit 02/04/2010 4:00a [facility],adrianna Townsend M.D. 52614 401.9 Hospitalists V72.81 Plan of Care Future Appointment(s):08/28/2018 8:30 am - Geri Alfaro M.D. at [facility]08/17/2018 10:15 am - Geri Alfaro M.D. at [facility]01/14/2019 11:40 am - Asim Quinteros M.D. at [facility] - Nuuydxynn02/19/2019 9:15 am - Wen Deras DNP, RN, WINDOWS APPLICATION PACKAGER-BC at [facility]08/08/2018 - Asim Quinteros M.D.Z01.810 Encounter for preprocedural cardiovascular examinationNew Labs:CBC Auto DiffUrinalysis ProfileUrine Culture And SensitivitiesNew Orders:EKGM16.12 Unilateral primary osteoarthritis, left hipI10 Essential (primary) hypertensionNew Labs:Basic Metabolic JdmrgO51.00 Pure hypercholesterolemia, fpvfqmphmyqE23.33 Obstructive sleep apnea (adult) (pediatric)N40.1 Benign prostatic hyperplasia with lower urinary tract sympR73.01 Impaired fasting glucoseNew Labs:Hemoglobin A1c (Glyco HGB)
--- OUTSIDE RECORDS SUMMARY | 2018-08-28 09:26 | XMS REPORT ---
:1945 External Reference #:[id number] Author Organization [facility] Address [address] [place] [address] [place] [address] Phone [phone] Care Team Providers Name Role Phone Asim Quinteros III, MD Primary Care Physician Unavailable Payers Type Date Identification Numbers Payment Provider Subscriber Health Maintenance Policy Number: Medicare Blue o Theo Ruiz (O) [id number] PayID: [id number] [address] [address] [place] [address] Problems Date Description Provider Status Onset: 01/02/2014 Benign essential hypertension Asim Quinteros M.D. Active Onset: 01/02/2014 Pure hypercholesterolemia Asim Quinteros M.D. Active Onset: 01/02/2014 Benign prostatic hypertrophy with Asim Quinteros M.D. 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 III, - Asim 10/17 Mario Fish Oil Burp-Less Hx Capsules 500mg Unknown / - 01/13 Immunizations CPT Code Status Date Vaccine Lot # [id number] Given 08/18/2017 Pneumococcal Conjugate Vaccine 13 Valent For Intramuscular Use 52118 Given 08/17/2017 Influenza Virus Vaccine, Quadrivalent, Split, Preservative Free 31785 Given 09/29/2016 Tdap - Tetanus/Diptheria/Acellular Pertussis [id number] 06625 Given 08/05/2016 Influenza Virus Vaccine, Quadrivalent, Split, [id number] Preservative Free 83205 Given 01/13/2015 Pneumococcal Conjugate Vaccine 13 Valent For [id number] Intramuscular Use 11649 Given 09/10/2014 Flu Vaccine Split Virus Preservative Free For Indiv [id number] 3Yr Older 51181 Given 09/07/2013 Flu Vaccine Split Virus Preservative Free For Indiv 3Yr Older [id number] Given 08/29/2011 Fluzone Vaccine 62210 Given 11/20/2009 Zoster (Zostavax) 12292 Given 11/20/2009 Pneumonia Vaccine 71440 Given 11/20/2005 Tetanus And Diptheria (Td) For Adult Use Preservative Free Vital Signs Date Vital Result Comment 08/17/2018 Height 72 inches 6'0" Weight 270.25 lb Heart Rate 72 /min BP Systolic 154 mmHg BP Diastolic 86 mmHg Respiratory Rate 16 /min Body Temperature 98.0 F Pain Level 8 BMI (Body Mass Index) 36.6 kg/m2 08/08/2018 Height 72 inches 6'0" Weight 271.00 [...] Test Date Test Result H/L Range Note CBC Auto Diff 08/09/2018 White Blood Count 10.6 10^3/uL 3.5-10.8 Red Blood Count 4.76 10^6/uL 4.00-5.40 Hemoglobin 13.7 g/dL Low 14.0-18.0 Hematocrit 40 % Low 42-52 Mean Corpuscular Volume 85 fL 80-94 Mean Corpuscular Hemoglobin 29 pg 27-31 Mean Corpuscular HGB Conc 34 g/dL 31-36 Red Cell Distribution Width 16 % High 10.5-15 Platelet Count 315 10^3/uL 150-450 Mean Platelet Volume 8.3 um3 7.4-10.4 Abs Neutrophils 7.6 10^3/uL 1.5-7.7 Abs Lymphocytes 1.5 10^3/uL 1.0-4.8 Abs Monocytes 0.7 10^3/uL 0-0.8 Abs Eosinophils 0.6 10^3/uL 0-0.6 Abs Basophils 0.1 10^3/uL 0-0.2 Abs Nucleated RBC 0 10^3/uL Granulocyte % 72.1 % 38-83 Lymphocyte % 14.4 % Low 25-47 Monocyte % 6.5 % 0-7 Eosinophil % 5.8 % 0-6 Basophil % 1.2 % 0-2 Nucleated Red Blood Cells % 0.1 Urinalysis Profile 08/09/2018 Urine Color Yellow Urine Appearance Clear Urine Specific Pattison 1.021 1.010-1.030 Urine pH 6.0 5-9 Urine Urobilinogen Negative Negative Urine Ketones Negative Negative Urine Protein Negative Negative Urine Leukocytes Negative Negative Urine Blood Negative Negative * * Negative 1 Urine Nitrite Negative Negative Urine Bilirubin Negative Negative Urine Glucose Negative Negative Urine Culture And 08/09/2018 Urine Culture SEE RESULT BELOW 2 Sensitivities Basic Metabolic Panel 08/09/2018 Sodium 138 mmol/L 135-145 Potassium 4.5 mmol/L 3.5-5.0 Chloride 102 mmol/L 101-111 Co2 Carbon Dioxide 27 mmol/L 22-32 Anion Gap 9 mmol/L 2-11 Glucose 109 mg/dL High 70-100 Blood Urea Nitrogen 16 mg/dL 6-24 Creatinine 0.78 mg/dL 0.67-1.17 BUN/Creatinine Ratio 20.5 High 8-20 Calcium 9.5 mg/dL 8.6-10.3 Egfr Non- 97.8 >60 Egfr 118.4 >60 3 Laboratory test finding 08/09/2018 Hemoglobin A1c (Glyco 5.8 % High 4.0- 5.6 4 HGB) Basic Metabolic Panel 07/31/2018 Sodium 136 mmol/L 135-145 Potassium 4.0 mmol/L 3.5-5.0 Chloride 102 mmol/L 101-111 Co2 Carbon Dioxide 28 mmol/L 22-32 Anion Gap 6 mmol/L 2-11 Glucose 167 mg/dL High 70-100 Blood Urea Nitrogen 15 mg/dL 6-24 Creatinine 0.82 mg/dL 0.67-1.17 BUN/Creatinine Ratio 18.3 8-20 Calcium 9.3 mg/dL 8.6-10.3 Egfr Non- 92.4 >60 Egfr 111.7 >60 5 Laboratory test finding 07/12/2018 Hemoglobin A1c 5.8 5-7 Urinalysis Profile 10/11/2017 Urine Color Yellow Urine Appearance Clear Urine Specific [place]attison 1.008 Low 1.010-1.030 Urine pH 8.0 5-9 [...] Egfr Non- 96.7 >60 Egfr 124.3 >60 6 Laboratory test finding 10/11/2017 C Reactive Protein 4.95 mg/L < 5.00 7 Vitamin D Total 25(Oh) 49.2 ng/mL 20-50 Lyme Disease Serology Negative Negative 8 Vitamin D, 1,25 Dihydroxy 43 pg/mL 18-64 9 Laboratory test finding 09/27/2016 PSA Diagnostic 0.825 ng/mL 0-4.0 10 Laboratory test finding 08/04/2016 Lactic Acid 1.5 mmol/L 0.5-2.0 11 Comp Metabolic Panel 08/04/2016 Sodium 136 mmol/L [...] Egfr Non- 84.5 >60 Egfr 108.7 >60 12 Laboratory test finding 08/04/2016 Lipase 26 U/L 11.0-82.0 C Reactive Protein 4.56 mg/L < 5.00 13 Urine Culture And Sensitivities 08/04/2016 Urine Culture SEE RESULT BELOW 14 Urinalysis Profile 08/04/2016 Urine Color Yellow Urine Appearance Clear Urine Specific Pattison 1.010 1.010-1.030 Urine pH 6.0 5-9 Urine Urobilinogen Negative Negative Urine Ketones Negative Negative Urine Protein Negative Negative Urine Leukocytes Trace Negative Urine Blood Negative Negative Urine Nitrite Negative Negative Urine Bilirubin Negative Negative Urine Glucose Negative Negative Urine White Blood Cell Trace(0-5/hpf) Absent Urine Red Blood Cell Trace(0-2/hpf) Absent Urine Bacteria Absent Absent Urine Squamous Epithelial Cell Present Absent CBC Auto Diff 08/04/2016 White Blood Count [...] 0-2 Nucleated Red Blood Cells % 0.1 CBC Auto Diff 04/17/2015 White Blood Count [...] Cells % 0 Laboratory test finding 04/17/2015 Erythrocyte Sed Rate 20 mm/Hr 0-40 Angiotensin Converting Enzyme 12 U/L 8 - 53 15 Lyme Disease Serology Negative Negative 16 Hla B27 04/17/2015 Hla B27 Negative 17 Hla B27 Interp See Comment 18 Cytoplasmic Neutrophilic AB 04/17/2015 C-Anca Negative Negative P-Anca Negative Negative 19 Laboratory test finding 04/17/2015 Rheumatoid Factor <15 IU/mL <15 20 Holly (Antinuclear Antibodies) Negative Negative Laboratory test finding 04/17/2015 C Reactive Protein 3.47 mg/L < 5.00 21 Lipid Profile (Trig/Chol/HDL) 06/27/2014 Triglycerides 76 mg/dL 22 Cholesterol 150 mg/dL 23 HDL Cholesterol 37.1 mg/dL 24 LDL Cholesterol 98 mg/dL 25 Comp Metabolic Panel 06/27/2014 Sodium 139 mmol/L [...] Egfr Non- 83.9 >60 Egfr 107.9 >60 26 Surgical Pathology 02/20/2014 S RUN DATE: SEE NOTE> 27 1 *Ascorbic acid is present which may interfere with detection of blood. 2 SEE RESULT BELOW Name: MAXIMINO THEO GARZA : [address]: Asim Quinteros III, MD Acct: [id number] Unit: [id number] AGE: 73 Location: [facility] Re08/09/18 SEX: M Status: REG REF SPEC: [id number] ANAHY: 08/09/[address] [facility] [address]: Asim Quinteros III, MD REQ: [id number] RECD: 08/09/18 STATUS: COMP _ SOURCE: URINE SPDESC: ORDERED: Urine Culture Urine Source: Clean Catch Procedure Result Reported Site Urine Culture Final 08/10/18- 1608 ML No Growth (<1,000 CFU/mL) * ML - Main Lab . END OF REPORT DEPARTMENT OF PATHOLOGY, [address] [place] [address] Rubin Galicia M.D. Director [facility] # [id number] 3 Because ethnic data is not always readily [...] 15-29 5 Kidney failure <15 (or dialysis) 4 Therapeutic target for the treatment of diabetes mellitus patients is <7% HBA1C, and in selective patients <6.0%. Please refer to [place] [employer] diabetic care guidelines for further information. 5 Because ethnic data is not always readily [...] 15-29 5 Kidney failure <15 (or dialysis) 6 Because ethnic data is not always readily [...] 15-29 5 Kidney failure <15 (or dialysis) 7 Acute inflammation: >10.00 8 Serologic response to B. burgdorferi infection is not detected, but cannot rule out early infection during which low or undetectable antibody levels to B. burgdorferi may be present. If clinically indicated, a new serum specimen should be submitted in 7-14 days. Test Performed by: [facility] [address] [place] [address] 9 ADDITIONAL INFORMATION This test was developed and its performance characteristics determined by [facility] in a manner consistent with CLIA requirements. This test has not been cleared or approved by the U.S. Food and Drug Administration. Test Performed by: [facility] [address] [place] [address] 10 Serum levels of PSA measured using the Anum Carlos DXI Hybritech immunoassay should not be interpreted as absolute evidence of the presence or absence of disease. The PSA value should be used in conjunction with other pertinent clinical diagnostic procedures. The values obtained with different assay methods or kits cannot be used interchangeably. 11 [facility] Severe Sepsis and Septic Shock Management Bundle Measure requires all lactic acids initially measuring >2.0 mmol/L be repeated. 12 Because ethnic data is not always readily [...] 15-29 5 Kidney failure <15 (or dialysis) 13 Acute inflammation: >10.00 14 SEE RESULT BELOW Name: THEO FISHMAN JR : [address]: Larry Draper MD Acct: [id number] Unit: [id number] AGE: 71 Location: ED Re08/04/16 SEX: M Status: DEP ER SPEC: [id number] ANAHY: 08/04/[address] [facility] [address]: Larry Draper MD REQ: [id number] RECD: 08/04/16 STATUS: LY GALLEGOS DR: Asim Quinteros III, MD _ SOURCE: URINE SPDESC: ORDERED: Urine Culture Procedure Result Reported Site Urine Culture Final 08/06/16- 825 ML No growth of clinically significant organisms * ML - MAIN LAB ([facility]) . END OF REPORT * ML=Testing performed at Main Lab DEPARTMENT OF PATHOLOGY, [address] [place] [address] Rubin Galicia M.D. Director [facility] # [id number] 15 Test Performed by: [place] [address] Police Inspector: Biju Samuel II, M.D., Ph.D. 16 Serologic response to B. burgdorferi infection is not detected, but cannot rule out early infection during which low or undetectable antibody levels to B. burgdorferi may be present. If clinically indicated, a new serum specimen should be submitted in 7-14 days. Test Performed by: [place] [address] Police Inspector: Biju Samuel II, M.D., Ph.D. 17 REFERENCE VALUE Not Applicable 18 RESULT: HLA-B27 antigen was not detected. ADDITIONAL INFORMATION Method: Flow Cytometry Performing Laboratory CLIA# [id number] Test Performed by: [place] [address] Police Inspector: Biju Samuel II, M.D., Ph.D. 19 Negative for cANCA and pANCA patterns by immunofluorescence. Test Performed by: [place] [address] Police Inspector: Biju Samuel II, M.D., Ph.D. 20 Test Performed by: [place] [address] Police Inspector: Biju Samuel II, M.D., Ph.D. 21 Acute inflammation: >10.00 22 Desirable <150 Borderline high 150-199 High 200-499 Very High >500 23 Desirable <200 Borderline high 200-239 High >239 24 Low <40 Desirable: 40-60 High: >60 25 Desirable <100 Near Optimal 100-129 Borderline high 130-159 High 160-189 Very High >189 26 Because ethnic data is not always readily [...] 15-29 5 Kidney failure <15 (or dialysis) 27 RUN DATE: 02/24/14 [facility] LAB LIVE PAGE 1 RUN TIME: [address] [place] [address] Specimen Inquiry Name: MAXIMINO THEO GARZA : [address]: Shantanu Villareal MD Acct: [id number] Unit: [id number] AGE: 69 Location: [facility] Re02/20/14 SEX: M Status: REG REF SPEC: [id number] ANAHY: 02/20/14- SUBM DR: Shantanu Villareal MD REQ: [id number] RECD: 02/20/14 STATUS: STEFANY GALLEGOS DR: Asim Quinteros III, [...] specimen is received in formalin labeled Theo Fishman Jr., Biopsy Right Colon Polyp, and consists of multiple portions of [place]-white tissue that in aggregate measure 0.4 x 0.3 x 0.2 cm. Submitted entirely, one cassette. 2. The specimen is received in formalin labeled Theo Fishman Jr., Biopsy Descending Colon Polyp, and consists of a 0.6 x 0.2 x 0.2 cm. de [place]os-white tissue. Submitted entirely, one cassette. 3. The specimen is received in formalin labeled Theo Fishman Jr., Biopsy Rectal CONTINUED ON NEXT PAGE * ML=Testing performed at Main Lab DEPARTMENT OF PATHOLOGY, [facility] [employer] [place] [address] Rubin Galicia M.D. Director [facility] Permit #[id number] RUN DATE: 02/24/14 [facility] LAB LIVE PAGE 2 RUN TIME: 1431 [facility] [employer] [place], [place] [address] Specimen Inquiry Patient: THEO FISHMAN JR [id number] (Continued) GROSS DESCRIPTION (Continued) GROSS DESCRIPTION (Continued) Polyp, and consists of two portions of de [place]antos-white tissue that in aggregate measure 0.6 x 0.3 x 0.2 cm. Submitted entirely, one cassette. 1. Signed (signature on file) Rubin Galicia MD 1430 END OF REPORT * ML=Testing performed at Main Lab DEPARTMENT OF PATHOLOGY, [address] [place] [address] Rubin Galicia M.D. Director [facility] Permit #[id number] Procedures Date CPT Code Description Status Comment 08/08/2018 59374 EKG Tracing & Interpretation Completed 09/06/2016 57963 Repair Hernia Epigastric, Completed Reducible 09/06/2016 39280 Repair Hernia Epigastric, Completed Reducible 03/17/2014 48117 Polysomnography Sleep Staging 4+ Completed Parameters W/Cpap 02/24/2014 54166 Polysomnography Sleep Staging 4+ Completed Parameters W/Cpap 02/20/2014 Colonoscopy Completed 01/16/2014 Diabetic Retinal Eye Exam Completed Document: 01/16/14 - Hearing Test/Ruparelia 01/02/2014 39300 EKG Tracing & Interpretation Completed 12/17/2012 33390 EKG, Interpretation Only Completed 11/20/2009 Colonoscopy Completed Encounters Type Date Location Provider CPT E/M Dx Office Visit 08/08/2018 [facility] Internal Medicine Asim Quinteros, 30271 Z01.810 3:20p - Zelalem Mcmanus M16.12 I10 E78.00 G47.33 N40.1 R73.01 Office Visit 07/30/2018 8:30a [facility] Geri Alfaro M.D. 60723 M25.552 Nicolás M16.12 Office Visit 03/07/2018 1:00p Pulmonology And Sleep Wen Deras, 17747 G47.33 [facility] YAZAN KRUGER, [facility] Office Visit 10/18/2017 2:30p [facility] Internal Medicine Asim Quinteros, 60516 M25.552 - Zelalem Mcmanus Office Visit 06/06/2017 10:00a [facility] Internal Medicine Asim Quinteros, 41295 I10 - Zelalem Mcmanus E78.00 G47.33 N40.1 Office Visit 02/20/2017 2:00p Pulmonology [place] [address] G47.33 [facility] E66.09 Office Visit 09/29/2016 2:00p [facility] Internal Medicine - Asim Quinteros, 57938 I10 Zelalem Mcmanus E78.00 G47.33 Z23 Office Visit 08/05/2016 11:00a [facility] Internal Medicine Asim Quinteros, 14306 K43.9 - Zelalem Mcmanus Z23 Office Visit 02/02/2016 2:00p Pulmonology [facility] Sleep Wen Deras, 32742 G47.33 [facility] YAZAN KRUGER, [facility] Office Visit 07/13/2015 10:00a [facility] Internal Medicine Asim Quinteros, 32091 401.1 - Luís Mcmanus 272.0 327.23 Office Visit 12/12/2014 9:00a [facility]ology [facility] Sleep Wen Deras, 10517 327.23 [facility] YAZAN KRUGER, [facility] Office Visit 07/01/2014 9:40a [facility] Internal Medicine Asim Quinteros, 71840 401.1 - Luís Mcmanus 272.0 327.23 Office Visit 02/13/2014 1:44p [facility] Ruben Del Real 70922 780.53 M.DDeena Office Visit 01/02/2014 10:20a [facility] Internal Medicine Asim Quinteros 22017 401.1 - Luís Mcmanus 272.0 724.2 600.01 274.00 389.9 V76.51 Office Visit 02/05/2010 2:45a [facility], Enrique Townsend M.D. 62921 401.9 Hospitalists Office Visit 02/04/2010 4:00a [facility], Enrique Townsend M.D. 19048 401.9 Hospitalists V72.81 Plan of Care Future Appointment(s):09/10/2018 10:15 am - Geri Alfaro M.D. at [facility]08/28/2018 10:30 am - Rafael Ma PA-C at [facility]08/28/2018 10:30 am - FRANK Limon at [facility]08/28/2018 10:30 am - Geri Alfaro M.D. at [facility]01/14/2019 11:40 am - Asim Quinteros M.D. at [facility] Internal Medicine - Jmjcvwdti60/19/2019 9:15 am - Wen Deras DNP, RN, PIG HANDLER-BC at [facility]08/17/2018 - Geri Alfaro M.D.M25.552 Pain in left hipFollow up:Follow up: 2 weeks after dqznwrnD91.12 Unilateral primary osteoarthritis, left hip
--- OUTSIDE RECORDS SUMMARY | 2018-08-28 09:26 | XMS REPORT ---
:1945 External Reference #:[id number] Author Organization [facility] Address [address] [place] [address] [place] [address] Phone [phone] Care Team Providers Name Role Phone Asim Quinteros III, MD Primary Care Physician Unavailable Payers Type Date Identification Numbers Payment Provider Subscriber Health Maintenance Policy Number: Medicare Blue o Theo Ruiz (O) [id number] PayID: [id number] [address] [address] [place] [address] Problems Date Description Provider Status Onset: 01/02/2014 Benign essential hypertension Asim Quinteros M.D. Active Onset: 01/02/2014 Pure hypercholesterolemia Asim Quinteros M.D. Active Onset: 01/02/2014 Benign prostatic hypertrophy with Asim Quinteros M.D. 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 Vitamin D 02/19 Active Capsules 2000Unit 1 by mouth every day Diltiazem HCL ER 08/10 Active Caps ER 180mg 180ca take two Asim Martin Coated Beads 24HR ps capsules Neli, by mouth M.DDeena once daily Pravastatin Sodium 07/08 Active Tablets 10mg 90tab 1 by Asim Martin /2013 s mouth Neli, every day M.D. Triamterene/Hydrochl 07/08 Active Tablets 37.5-25mg 90tab take one Asim Martin orothirich s tablet by Neli mouth M.DDeena once daily Centrum Silver Active Tablets 1 by Unknown mouth every day [place] 08/24 Hx Tablets 5-325mg 20tab 1-2 tabs [...] 07/08 Hx Tablets 1 by Asim Martin /2013 mouth Neli, - every day M.D. 02/19 Lisinopril 07/08 Hx Tablets 5mg 90tab take one Asim Martin s tablet by Neli - mouth M.DDeena 07/12 daily Pravastatin Sodium Hx Tablets 10mg Unknown / - 07/08 Furosemide Hx Tablets 20mg Unknown / - 07/08 Diltiazem CD Hx Caps ER 180mg Unknown / 24HR - 07/08 Lisinopril Hx Tablets 5mg Unknown / - 07/08 Triamterene/Hydrochl Hx Tablets 37.5-25mg Unknown orothiazide /0000 - 07/08 Hydrochlorothiazide Hx Tablets 25mg Unknown /0000 - 12/11 Aspirin Ec Lo-Dose Hx Tablets 81mg 90tab [address] stella german. III, - Asim 10/17 MD Mario /2016 Fish Oil Burp-Less Hx Capsules 500mg Unknown /0000 - 01/13 Immunizations CPT Code Status Date Vaccine Lot # [id number] Given 08/18/2017 Pneumococcal Conjugate Vaccine 13 Valent For Intramuscular Use [id number] Given 08/17/2017 Influenza Virus Vaccine, Quadrivalent, Split, Preservative Free 50189 Given 09/29/2016 Tdap - Tetanus/Diptheria/Acellular Pertussis [id number] 64857 Given 08/05/2016 Influenza Virus Vaccine, Quadrivalent, Split, [id number] Preservative Free 64758 Given 01/13/2015 Pneumococcal Conjugate Vaccine 13 Valent For [id number] Intramuscular Use 61483 Given 09/10/2014 Flu Vaccine Split Virus Preservative Free For Indiv [id number] 3Yr Older 63018 Given 09/07/2013 Flu Vaccine Split Virus Preservative Free For Indiv 3Yr Older [id number] Given 08/29/2011 Fluzone Vaccine 11722 Given 11/20/2009 Zoster (Zostavax) 88591 Given 11/20/2009 Pneumonia Vaccine 01173 Given 11/20/2005 Tetanus And Diptheria (Td) For Adult Use Preservative Free Vital Signs Date Vital Result Comment 07/30/2018 Height 72 inches 6'0" Weight 269.00 [...] Test Date Test Result H/L Range Note Laboratory test finding 07/12/2018 Hemoglobin A1c 5.8 5-7 Urinalysis Profile 10/11/2017 Urine Color Yellow Urine Appearance Clear Urine Specific [place] 1.008 Low 1.010-1.030 Urine pH 8.0 5-9 [...] Egfr Non- 96.7 >60 Egfr 124.3 >60 1 Laboratory test finding 10/11/2017 C Reactive Protein 4.95 mg/L < 5.00 2 Vitamin D Total 25(Oh) 49.2 ng/mL 20-50 Lyme Disease Serology Negative Negative 3 Vitamin D, 1,25 Dihydroxy 43 pg/mL 18-64 4 Laboratory test finding 09/27/2016 PSA Diagnostic 0.825 ng/mL 0-4.0 5 Laboratory test finding 08/04/2016 Lactic Acid 1.5 mmol/L 0.5-2.0 6 Comp Metabolic Panel 08/04/2016 Sodium 136 mmol/L [...] Egfr Non- 84.5 >60 Egfr 108.7 >60 7 Laboratory test finding 08/04/2016 Lipase 26 U/L 11.0-82.0 C Reactive Protein 4.56 mg/L < 5.00 8 Urine Culture And Sensitivities 08/04/2016 Urine Culture SEE RESULT BELOW 9 Urinalysis Profile 08/04/2016 Urine Color Yellow Urine Appearance Clear Urine Specific [place] 1.010 1.010-1.030 Urine pH 6.0 5-9 Urine [...] Converting Enzyme 12 U/L 8 - 53 10 Lyme Disease Serology Negative Negative 11 Hla B27 04/17/2015 Hla B27 Negative 12 Hla B27 Interp See Comment 13 Cytoplasmic Neutrophilic AB 04/17/2015 C-Anca Negative Negative P-Anca Negative Negative 14 Laboratory test finding 04/17/2015 Rheumatoid Factor <15 IU/mL <15 15 Holly (Antinuclear Antibodies) Negative Negative Laboratory test finding 04/17/2015 C Reactive Protein 3.47 mg/L < 5.00 16 Lipid Profile (Trig/Chol/HDL) 06/27/2014 Triglycerides 76 mg/dL 17 Cholesterol 150 mg/dL 18 HDL Cholesterol 37.1 mg/dL 19 LDL Cholesterol 98 mg/dL 20 Comp Metabolic Panel 06/27/2014 Sodium 139 mmol/L [...] Egfr Non- 83.9 >60 Egfr 107.9 >60 21 Surgical Pathology 02/20/2014 S RUN DATE: 02/24/ <SEE NOTE> 22 1 Because ethnic data is not always [...] 5 Kidney failure <15 (or dialysis) 2 Acute inflammation: >10.00 3 Serologic response to B. burgdorferi infection is not detected, but cannot rule out early infection during which low or undetectable antibody levels to B. burgdorferi may be present. If clinically indicated, a new serum specimen should be submitted in 7-14 days. Test Performed by: [facility] [employer] [facility] [address] [place] [address] 4 ADDITIONAL INFORMATION This test was developed and its performance characteristics determined by [facility] in a manner consistent with CLIA requirements. This test has not been cleared or approved by the U.S. Food and Drug Administration. Test Performed by: [facility] - [address] [address] 5 Serum levels of PSA measured using the Anum adQuota DXI Hybritech immunoassay should not be interpreted as absolute evidence of the presence or absence of disease. The PSA value should be used in conjunction with other pertinent clinical diagnostic procedures. The values obtained with different assay methods or kits cannot be used interchangeably. 6 [facility] Severe Sepsis and Septic Shock Management Bundle Measure requires all lactic acids initially measuring >2.0 mmol/L be repeated. 7 Because ethnic data is not always readily [...] 15-29 5 Kidney failure <15 (or dialysis) 8 Acute inflammation: >10.00 9 SEE RESULT BELOW Name: THEO FISHMAN JR : [address]: Larry Draper MD Acct: [id number] Unit: [id number] AGE: 71 Location: ED Re08/04/16 SEX: M Status: DEP ER SPEC: [id number] ANAHY: 08/04/[address]: Larry Draper MD REQ: [id number] RECD: 08/04/16 STATUS: LY GALLEGOS DR: Asim Quinteros III, MD _ SOURCE: URINE SPDESC: ORDERED: Urine Culture Procedure Result Reported Site Urine Culture Final 08/06/16- 08 ML No growth of clinically significant organisms * ML - [facility] ([facility]) . END OF REPORT * ML=Testing performed at [facility] DEPARTMENT OF PATHOLOGY, [address] [place] [address] Rubin Galicia M.D. Director [place] # [id number] 10 Test Performed by: [place] [address] Sr. Manager Corporate Communications: Biju Samuel II, M.D., Ph.D. 11 Serologic response to B. burgdorferi infection is not detected, but cannot rule out early infection during which low or undetectable antibody levels to B. burgdorferi may be present. If clinically indicated, a new serum specimen should be submitted in 7-14 days. Test Performed by: [place] [address] Sr. Manager Corporate Communications: Biju Samuel II, M.D., Ph.D. 12 REFERENCE VALUE Not Applicable 13 RESULT: HLA-B27 antigen was not detected. ADDITIONAL INFORMATION Method: Flow Cytometry Performing Laboratory CLIA# [id number] Test Performed by: [place] [address] Sr. Manager Corporate Communications: Biju Samuel II, M.D., Ph.D. 14 Negative for cANCA and pANCA patterns by immunofluorescence. Test Performed by: [place] [address] Sr. Manager Corporate Communications: Biju Samuel II, M.D., Ph.D. 15 Test Performed by: [place] [address] Sr. Manager Corporate Communications: Biju Samuel II, M.D., Ph.D. 16 Acute inflammation: >10.00 17 Desirable <150 Borderline high 150-199 High 200-499 Very High >500 18 Desirable <200 Borderline high 200-239 High >239 19 Low <40 Desirable: 40-60 High: >60 20 Desirable <100 Near Optimal 100-129 Borderline high 130-159 High 160-189 Very High >189 21 Because ethnic data is not always readily [...] 15-29 5 Kidney failure <15 (or dialysis) 22 RUN DATE: 02/24/14 [facility] LAB LIVE PAGE 1 RUN TIME: [address] [place] [address] Specimen Inquiry Name: THEO FISHMAN JR : [address]: Shantanu Villareal MD Acct: [id number] Unit: [id number] AGE: 69 Location: [facility] Re02/20/14 SEX: M Status: REG REF SPEC: [id number] ANAHY: 02/20/14- SUBM DR: Shantanu Villareal MD REQ: [id number] RECD: 02/20/14 STATUS: STEFANY GALLEGOS DR: Asim [...] The specimen is received in formalin labeled Durward E. Dearborn Jr., Biopsy Right Colon Polyp, and consists of multiple portions of de los santos-white tissue that in aggregate measure 0.4 x 0.3 x 0.2 cm. Submitted entirely, one cassette. 2. The specimen is received in formalin labeled Durward E. Dearborn Jr., Biopsy Descending Colon Polyp, and consists of a 0.6 x 0.2 x 0.2 cm. de los santos-white tissue. Submitted entirely, one cassette. 3. The specimen is received in formalin labeled Durward E. Sravanthi Jr., Biopsy Rectal CONTINUED ON NEXT PAGE * ML=Testing performed at Main Lab DEPARTMENT OF PATHOLOGY, [facility] [employer] [place], [place] [address] Rubin Galicia M.D. Director [facility] Permit #[id number] RUN DATE: 02/24/14 [facility] LAB LIVE PAGE 2 RUN TIME: [address] [place] [address] Specimen Inquiry Patient: THEO FISHMAN JR [id number] (Continued) GROSS DESCRIPTION (Continued) GROSS DESCRIPTION (Continued) Polyp, and consists of two portions of de los santos-white tissue that in aggregate measure 0.6 x 0.3 x 0.2 cm. Submitted entirely, one cassette. 1. Signed (signature on file) Rubin Galicia MD 1430 END OF REPORT * ML=Testing performed at Main Lab DEPARTMENT OF PATHOLOGY, [address] [place] [address] Rubin Galicia M.D. Director [facility] Permit #[id number] Procedures Date CPT Code Description Status Comment 09/06/2016 63272 Repair Hernia Epigastric, Completed Reducible 09/06/2016 64683 Repair Hernia Epigastric, Completed Reducible 03/17/2014 61922 Polysomnography Sleep Staging 4+ Completed Parameters W/Cpap 02/24/2014 83797 Polysomnography Sleep Staging 4+ Completed Parameters W/Cpap 02/20/2014 Colonoscopy Completed 01/16/2014 Diabetic Retinal Eye Exam Completed Document: 01/16/14 - Hearing Test/Ruparelia 01/02/2014 14668 EKG Tracing & Interpretation Completed 12/17/2012 33458 EKG, Interpretation Only Completed 11/20/2009 Colonoscopy Completed Encounters Type Date Location Provider CPT E/M Dx Office Visit 03/07/2018 Pulmonology And Sleep Wen Deras, 19312 G47.33 1:00p [facility] YAZAN KRUGER, [facility] Office Visit 10/18/2017 [facility] Internal Medicine Asim Quinteros, 18330 M25.552 2:30p - Zelalem Mcmanus Office Visit 06/06/2017 [facility] Internal Medicine Asim Quinteros, 65057 I10 10:00a - Zelalem Mcmanus E78.00 G47.33 N40.1 Office Visit 02/20/2017 2:00p [facility] [address] G47.33 [facility] E66.09 Office Visit 09/29/2016 2:00p [facility] Internal Medicine - Asim Quinteros, 41287 I10 Zelalem Mcmanus E78.00 G47.33 Z23 Office Visit 08/05/2016 11:00a [facility] Internal Medicine Asim Quinteros, 67157 K43.9 - Zelalem Mcmanus Z23 Office Visit 02/02/2016 2:00p [facility] Sleep Wen Deras, 17879 G47.33 [facility] YAZAN KRUGER, [facility] Office Visit 07/13/2015 10:00a [facility] Internal Medicine Asim Quinteros, 07264 401.1 - Luís Mcmanus 272.0 327.23 Office Visit 12/12/2014 9:00a Pulmonology And Sleep Wen Deras 98262 327.23 [facility] YAZAN KRUGER, [facility] Office Visit 07/01/2014 9:40a [facility] Internal Medicine Asim Quinteros, 70267 401.1 - Luís Mcmanus 272.0 327.23 Office Visit 02/13/2014 1:44p [facility] Ruben Del Real 16331 780.53 MDeenaDDeena Office Visit 01/02/2014 10:20a [facility] Internal Yuniel Quinteros, 37069 401.1 - Luís Mcmanus 272.0 724.2 600.01 274.00 389.9 V76.51 Office Visit 02/05/2010 2:45a [facility],adrianna Townsend M.D. 19850 401.9 Hospitalists Office Visit 02/04/2010 4:00a [facility],adrianna Townsend M.D. 13082 401.9 Hospitalists V72.81 Plan of Care Future Appointment(s):08/17/2018 10:15 am - Geri Aflaro M.D. at [facility]/14/2019 11:40 am - Asim Quinteros M.D. at [facility] Internal Medicine - [place]57/19/2019 9:15 am - Wen Deras DNP, RN, BRIM BUSTER-BC at [facility]07/30/2018 - Geri Alfaro M.D.M25.552 Pain in left hipFollow up:Follow up: 7-10 days before fjqaxvrH66.12 Unilateral primary osteoarthritis, left hip
[2018-08-28] MEDS ORDERED: ceFAZolin 2 GM PREMIX in ORs 2 GM/50 ML BAG IVPB ONE (09:33)
[2018-08-28] MEDS ORDERED: Famotidine IV* 10 MG/ML 2 ML (20 mg) ONE (09:33)
[2018-08-28] MEDS ORDERED: Dexamethasone IV* 4 MG/ML 1 ML (4 MG) ONE (09:33)
[2018-08-28] MEDS ORDERED: Buffered Lidocaine 0.9% SYRIN* 5 ML/SYR SYRINGE ONE (09:34)
[2018-08-28] MEDS ORDERED: ceFAZolin 1 GM in Dextrose (*) 1 GM/50 ML BAG IVPB ONE (09:38)
[2018-08-28] MEDS ORDERED: fentaNYL* 50 MCG/ML 2 ML VIAL (100 MCG VIAL) ONE ×3 (11:33→15:00)
[2018-08-28] MEDS ORDERED: Midazolam* 1 MG/ML 5 ML VIAL (5 MG) ONE (11:33)
[2018-08-28] MEDS ORDERED: Bupivacaine 0.5% SDV PF* 30ML VIAL ONE ×2 (11:40→13:52)
[2018-08-28] MEDS ORDERED: Propofol* 500 MG/50 ML BTL ONE (11:57)
[2018-08-28] MEDS ORDERED: Lidocaine 2% PF * 5 ML VIAL ONE (11:57)
[2018-08-28] MEDS ORDERED: Morphine VIAL* 4 MG/ML VIAL (1 ml vial) IV PRN ×2 (12:39→14:32)
[2018-08-28] MEDS ORDERED: Acetaminophen IV 1GM/100ML * 1,000 MG/100 ML VIAL IVPB ONE (12:39)
[2018-08-28] MEDS ORDERED: Naloxone* 0.4 MG/ML 1 ML VIAL IV PRN (12:39)
[2018-08-28] MEDS ORDERED: DiMENhydriNATE IV* 50 MG/ML VIAL IV PUSH PRN (12:39)
[2018-08-28] MEDS ORDERED: oxyCODONE TAB* 5 MG TAB PO PRN ×2 (12:39→14:32)
[2018-08-28] MEDS ORDERED: Labetalol IV* 5 MG/ML 20 ML VIAL ONE (13:26)
[2018-08-28] MEDS ORDERED: Ondansetron INJ* 2 MG/ML VIAL ONE (13:28)
--- NOTE | 2018-08-28 14:05 | RAD ---
Indication: LEFT total hip replacement. Comparison: August 25, 2018 Technique: Portable RIGHT lateral decubitus crosstable PA LEFT hip 1310 hours Report: LEFT acetabular prosthetic component in place. LEFT femur test fit/reamer component in place. No periprosthetic fracture evident. IMPRESSION: #. Intraoperative control film.
[2018-08-28] MEDS ORDERED: Cyclobenzaprine TAB* 10 MG PO PRN (14:32)
[2018-08-28] MEDS ORDERED: Ondansetron INJ* 2 MG/ML VIAL IV PRN (14:32)
[2018-08-28] MEDS ORDERED: Bisacodyl SUPP* 10 MG SUPP PR PRN (14:32)
[2018-08-28] MEDS ORDERED: Magnesium Hydroxide LIQ* 30 ML UDC PO PRN (14:32)
[2018-08-28] MEDS ORDERED: diPHENhydraMINE IV* 50 MG/ML 1 ml VIAL (BENADRYL) IV PRN (14:32)
[2018-08-28] MEDS ORDERED: Polyethylene Glycol 3350* 17 GM PACKET PO PRN (14:32)
[2018-08-28] MEDS ORDERED: Acetaminophen IV 1GM/100ML * 100 ML ONE (15:00)
[2018-08-28] MEDS: fentaNYL* 50 MCG/ML 2 ML VIAL (100 MCG VIAL) IV PRN ×2 (15:01→16:22)
[2018-08-28] MEDS ORDERED: Ketorolac INJ* 30 MG/ML 1 ML VIAL ONE (15:13)
[2018-08-28] MEDS ORDERED: Ketorolac INJ* 30 MG/ML 1 ML VIAL IV PUSH ONE (15:14)
--- NOTE | 2018-08-28 15:45 | RAD ---
HISTORY: S/P LTHA COMPARISONS: July 30, 2018 VIEWS: 4 , Frontal view of the pelvis with frontal and crosstable lateral views of the left hip FINDINGS: BONE DENSITY: Normal. BONES: The patient is status post left hip arthroplasty. There is no hardware failure or osteolysis. JOINTS: The patient is status post left hip arthroplasty. ALIGNMENT: There is no dislocation. SOFT TISSUES: Unremarkable. OTHER FINDINGS: None. IMPRESSION: STATUS POST LEFT HIP ARTHROPLASTY
--- NOTE | 2018-08-28 16:35 | PN ---
Progress Note - Progress Note Date of Service: 08/28/18 Note: resting comfortably in recovery room. Denies SOB/calf pain. pain well controlled. able to dorsi flex/plantar flex/ 2+DP pulse and intact sensation
--- NOTE | 2018-08-28 17:26 | RAD ---
INDICATION: Status post left hip prosthesis TECHNIQUE: 2 AP views of the pelvis were obtained FINDINGS: The patient is status post instillation of a left hip prosthesis in anatomic alignment in the AP projection. There is no evidence of periprosthetic fracture. Degenerative changes noted at the right hip include sclerotic change of the articulating services and marginal osteophyte formation. Incidentally noted is coarse calcification overlying the bilateral common femoral and proximal superficial femoral arteries. IMPRESSION: Anatomic alignment of recently installed left hip prosthesis in the AP projection.
[2018-08-28] MEDS ORDERED: Warfarin TAB(*) 6 MG PO ONE (18:30)
[2018-08-28] MEDS: CMC: Pravastatin (NF) 20 MG TAB PO SCH (20:02)
--- NOTE | 2018-08-28 21:30 | CONS ---
CONSULTATION REPORT: ADDENDUM: 1. During assessment: Cardiovascular: The patient was noted to be intermittently bradycardic with a rate of 49, sinus rhythm. S1, S2 present. No murmurs noted. This should be added to plan. 2. Postop bradycardia: Assessment: The patient noted to be bradycardic occasionally during assessment. Currently, heart rate 65. Sinus rhythm. We will continue to monitor. I suspect this is multifactorial from anesthesia and postoperative status. OSMAN JEFFERSON, FELIPE [id number]/CPS #: [id number] RUTH
[2018-08-28] MEDS: ceFAZolin 1 GM in Dextrose (*) 1 GM/50 ML BAG IVPB SCH (22:39)
[2018-08-28] MEDS: Docusate CAP* 100 MG PO SCH (22:43)
[2018-08-28] MEDS: oxyCODONE/Acetamin 5/325 MG* TAB PO PRN (22:43)
[2018-08-28] MEDS: Magnesium Hydroxide LIQ* 30 ML UDC PO SCH (22:44)
--- NOTE | 2018-08-28 22:53 | CONS ---
ADDENDUM NOW INCLUDED ON THIS REPORT CC: Dr. Quinteros * CONSULTATION REPORT: DATE OF CONSULT: 08/28/18 PRIMARY CARE PROVIDER: Dr. Quinteros. REQUESTING PHYSICIAN OF CONSULT: Dr. Alfaro. ATTENDING PHYSICIAN: Dr. Johnson. REASON FOR CONSULT: Co-medical management. HISTORY OF PRESENT ILLNESS: I will refer you to Dr. Alfaro's history and physical, which was dictated on 08/17/18 for complete details; but in short, Mr. Fishman is a 73-year-old male with past medical history of osteoarthritis, hypertension, obstructive sleep apnea, BPH, hypercholesterolemia who presents to the [facility] on 08/28/18 for an elective left total hip replacement. We have been asked to consult and co-medical manage for his hypertension and sleep apnea. PAST MEDICAL HISTORY: 1. Osteoarthritis. 2. Hypertension. 3. Obstructive sleep apnea, the patient uses a CPAP. 4. Benign prostatic hyperplasia. 5. Hypercholesterolemia. PAST SURGICAL HISTORY: 1. Hernia repair. 2. Cholecystectomy. 3. TURP. HOME MEDICATIONS: 1. Diltiazem HCL 180 mg 2 tabs p.o. q. a.m. 2. Triamterene/HCTZ 37.5/25 mg 1 cap p.o. at bedtime. 3. Pravastatin 10 mg p.o. q.p.m. 4. Lisinopril 10 mg p.o. q.a.m. 5. Vitamin D 2000 units p.o. q.a.m. 6. Centrum Silver multivitamin 1 cap p.o. q.a.m. 7. Tylenol Arthritis 2 tabs p.o. once p.r.n. ALLERGIES: The patient has no known medical allergies. FAMILY HISTORY: Father due to [place], mother due to complications of colon disease, brother is alive, but has history of stroke. Other brother and sisters are healthy. SOCIAL HISTORY: The patient is . He lives alone. He does his ADLs independently and does not use assistive devices for walking. He is a former smoker, 1 pack a day for approximately 32 years. He reports occasional alcohol use approximately 1 glass of wine every 2 months. Denies drug use. The patient has family at the bedside, who would like to be noted as emergency contact and the patient agrees to this. They will be helping patient in the postoperative period at home. Guera Moon ([id number]) home number [phone]. Car Moon ([id number]) cell number [phone]. REVIEW OF SYSTEMS: A 14-point review of systems was performed. The patient reports left hip pain, but all other systems were negative. PHYSICAL EXAM: General: Mr. Fishman is a well-developed, well-nourished man, lying on the stretcher in PACU, in no acute distress. Appears stated age. VS: Temp 97.2, HR 48, RR 15, O2 of 98 on 2 L NC, BP 98/47. HEENT: EOMs intact. Sclerae normal. Oral mucosa is moist without lesions. Pharynx is clear. Neck: Nontender. No lymphadenopathy. Respiratory: Lungs are clear to auscultation. No rhonchi, wheezes or rubs. CV: The patient was noted to be intermittently bradycardic with a rate of 49, sinus rhythm. S1, S2 present. No murmurs noted. Extremities: Skin is warm. No edema. Pedal pulses +2 bilaterally. The patient is wiggling toes well. Musculoskeletal: Left hip pain. Moves upper extremities well. No pain in the upper extremities. As above, wiggling toes and moving ankles. Abdomen: Soft, nontender to palpation. Bowel wounds normoactive. Neuro: Awake, alert, oriented. Answering questions without difficulty. Skin: Grossly intact without lesions. Dressing to left hip, clean, dry and intact. DIAGNOSTIC STUDIES/LABORATORY DATA: Preop labs drawn on 08/09/18, WBC 10.6, RBC 4.76, hemoglobin 13.7, hematocrit 40, platelets 315. INR 0.95, PTT 29.2. Sodium 138, potassium 4.5, chloride 102, BUN 16, creatinine 0.78, glucose 109, hemoglobin A1c 5.8. Urine unremarkable. Preop EKG, normal sinus rhythm. ASSESSMENT AND PLAN: Mr. Fishman is a 73-year-old male with a past medical history of hypertension, obstructive sleep apnea, and hypercholesterolemia who presented to [facility] today for elective left total hip replacement. Hospitalist team was consulted due to patient's other medical conditions as mentioned above. DIAGNOSES AND RECOMMENDATIONS: 1. Status post left total hip replacement. Dr. Alfaro and her team have placed orders for bowel regimen, DVT prophylaxis and pain control. We agree with the orders. The patient is cleared for PT and OT. 2. Hypertension. Assessment: The patient is currently hypotensive, we will hold all of his blood pressure medications, which include lisinopril, diltiazem , and triamterene/HCTZ. We will routinely monitor his vital signs and reorder these medications accordingly. 3. Obstructive sleep apnea: The patient has CPAP from home, order placed for patient to use CPAP from home, order placed to monitor patient's pulse ox continuously. 4. Postop bradycardia: Assessment: The patient was noted to be bradycardic occasionally during assessment. Currently, heart rate 65. We will continue to monitor. I suspect this is multifactorial from anesthesia and postoperative status. 5. Hypercholesterolemia: Pravastatin reordered as same from home. 6. Code status: The patient is a full code. TIME SPENT: Approximately 45 minutes were spent on this consult, greater than half that time was spent with the patient obtaining history and performing physical exam and reviewing my plan of care. Plan was reviewed with Dr Johnson was agrees with plan. Thank you for your consultation. We will follow this patient's hospital stay along with you. FELIPE SAEZ
[2018-08-28] MEDS ORDERED: Acetaminophen TAB* 325 MG PO PRN (23:00)
[2018-08-29] MEDS: ceFAZolin 1 GM in Dextrose (*) 1 GM/50 ML BAG IVPB SCH ×2 (05:17→12:23)
[2018-08-29 06:41] LABS: Hematocrit 31 % (42-52); Hemoglobin 10.5 g/dl (14.0-18.0); Mean Platelet Volume 7.6 um3 (7.4-10.4); Platelet Count 280 10^3/ul (150-450)
[2018-08-29 06:48] LABS: INR 0.99 (0.77-1.02)
[2018-08-29 06:59] LABS: EGFR Non-African American 89.8 (>60)
[2018-08-29] MEDS: Docusate CAP* 100 MG PO SCH ×2 (07:35→23:43)
[2018-08-29] MEDS: oxyCODONE/Acetamin 5/325 MG* TAB PO PRN ×3 (07:35→23:43)
[2018-08-29] MEDS: Magnesium Hydroxide LIQ* 30 ML UDC PO SCH ×2 (07:35→22:25)
--- NOTE | 2018-08-29 10:31 | PN ---
Progress Note - Progress Note Date of Service: 08/29/18 SOAP: Subjective: []Patient was seen and examined OOB in chair, he feels very well stating that his pain is significantly better than it was preoperatively. Denies any chest pain, shortness of breath, dizziness or nausea. Objective: []General: Well appearing, NAD LLE: Left hip dressing CDI, no surrounding erythema and thigh is soft. DF/PF intact. Sensation intact distally. DP 2+ Calves are supple and nontender without erythema, edema or palpable cords Assessment: []POD 1 sp left total hip arthroplasty Dr Alfaro 08/28 Plan: []WBAT PT/OT lovenox, coumadin 8 mg today Hyponatremia to 131, stop IV fluids, continue regular diet and repeat tomorrow Vital Signs Temp 97.9 F 08/29/18 07:32 Pulse 89 08/29/18 07:32 Resp 18 08/29/18 09:51 BP 123/65 08/29/18 07:32 Pulse Ox 98 08/29/18 08:00 Intake & Output 08/28/18 08/29/18 08/29/18 18:59 06:59 18:59 Intake Total 1500 950 240 Output Total 650 450 Balance 1500 300 -210 Weight 333 lb 12.8 oz Intake: IV Fluids 1500 LR 1500 Oral 950 240 Output: [place] 650 450 Other: Estimated Blood Loss ~100 Comment Laboratory Last Values Hgb 10.5 g/dl (14.0-18.0) L 08/29/18 06:10 Hct 31 % (42-52) L 08/29/18 06:10 Plt Count 280 10^3/ul (150-450) 08/29/18 06:10 MPV 7.6 um3 (7.4-10.4) 08/29/18 06:10 INR (Anticoag Therapy) 0.99 (0.77-1.02) 08/29/18 06:10 Sodium 131 mmol/L (135-145) L 08/29/18 06:10 Potassium 4.2 mmol/L (3.5-5.0) 08/29/18 06:10 Chloride 98 mmol/L (101-111) L 08/29/18 06:10 Carbon Dioxide 26 mmol/L (22-32) 08/29/18 06:10 Anion Gap 7 mmol/L (2-11) 08/29/18 06:10 BUN 21 mg/dL (6-24) 08/29/18 06:10 Creatinine 0.84 mg/dL (0.67-1.17) 08/29/18 06:10 Est GFR ( Amer) 108.7 (>60) 08/29/18 06:10 Est GFR (Non-Af Amer) 89.8 (>60) 08/29/18 06:10 BUN/Creatinine Ratio 25.0 (8-20) H 08/29/18 06:10 Glucose 194 mg/dL (70-100) H 08/29/18 06:10 Calcium 8.8 mg/dL (8.6-10.3) 08/29/18 06:10
[2018-08-29] MEDS: Enoxaparin(*) 40 MG/0.4 ML SYR SUBCUT SCH (12:23)
--- NOTE | 2018-08-29 12:49 | OP ---
DATE OF OPERATION: 08/28/18 - ROOM #341 DATE OF : 47 ATTENDING SURGEON: Geri Alfaro MD SPORTS MEDIA: FRANK Benjamin. Mr. Ma did help throughout the procedure with preparation of the leg, wound retraction, manipulation of the hip, and wound closure. ANESTHESIOLOGIST: Dr. Schaffer. ANESTHESIA: Spinal. PRE-OP DIAGNOSIS: Severe end-stage degenerative osteoarthritis of the left hip joint. POST-OP DIAGNOSIS: Severe end-stage degenerative osteoarthritis of the left hip joint. OPERATIVE PROCEDURE: Left total hip arthroplasty. COMPLICATIONS: None. ESTIMATED BLOOD LOSS: 400 cc. SPECIMENS: Femoral head and acetabular reaming sent to Pathology. HARDWARE USED: This is uncemented [place] total hip arthroplasty hardware. For the cup, a Tritanium cluster hole shell 60F, one 20-mm screw. For the liner , a Trident X3, 0-degree polyethylene insert 40F. For the stem, an Accolade II size 8 with a 127-degree neck. For the head, a Biolox delta ceramic V40 femoral head, 40 +0 adapter sleeve. BRIEF HISTORY/INDICATION: Mr. Fishman is a 73-year-old gentleman with years of increasingly severe left hip pain. He failed conservative treatment with anti- inflammatories, pain medication, and physical therapy. Due to continued pain and decreased quality of life, he elected to undergo left total hip arthroplasty. Radiographs showed [id number] arthritis. Informed consent was obtained from the patient. He understood the risks of surgery included, but were not limited to bleeding, infection, damage to nearby structures, continued pain, need for further surgery, intraoperative fracture, nerve palsy, hardware failure or loosening, dislocation, leg length discrepancy, stroke, heart attack , blood clot and . He wished to proceed. INTRAOPERATIVE FINDINGS: Intraoperatively, the patient was noted to have complete loss of cartilage on the femoral head and acetabular cartilage and extensive osteophyte formation. DESCRIPTION OF PROCEDURE: Mr. Fishman was identified in the preanesthesia unit. His left lower extremity was marked as the correct operative side. Informed consent was signed and placed in the chart. The patient was taken to the operating room and placed under spinal anesthesia. A Laughlin catheter was placed. The patient was placed in the right lateral decubitus position on the pegboard. All bony prominences were well padded. Left lower extremity was prepped and draped in the usual sterile fashion. Preop time-out was made to correctly identify the patient's side and site. Appropriate perioperative antibiotics were given within 1 hour of incision. A standard posterior hip incision was made and carried down to the lateral fascial layer. Lateral fascial layer was incised in line with the skin incision. Charnley retractor was placed and the posterior aspect of the hip joint was visualized. The piriformis and conjoint tendons were identified and elevated using electrocautery. These were tagged with #5 Ethibond. Next, electrocautery was used to make a standard posterolateral capsular flap and this was also tagged with #5 Ethibond. The hip was carefully dislocated. Lesser troch to center of the femoral head measured 70 mm. Oscillating saw was used to make the appropriate femoral neck cut. The femur was carefully retracted anteriorly. After appropriate placement of retractors, the acetabulum was well visualized. Long-handled knife was used to sharply remove any remaining labrum from the acetabular rim. The acetabulum was sequentially reamed up to a size 59. The 59 reamer obtained bleeding subchondral bone bed. A 59 trial had excellent fit. 60F Tritanium cluster hole shell was chosen as the final implant. This was impacted into the acetabulum without difficulty. Stability of the cup was noted to be excellent. A single 25-mm screw was placed in the superoposterior quadrant for extra stability. The liner chosen was a Trident X3 0-degree 40F. This was impacted into the acetabulum without difficulty. Stability of the liner was checked and rechecked and noted to be stable. Next, attention was turned to preparation of the proximal femur. A canal finder was used to enter the proximal femur. The femur was sequentially broached up to a size 8. Size 8 broach had excellent fit with appropriate anteversion. A 127 neck trial with a 40 +0 head trial was chosen. Lesser troch to the center of the femoral head measured 71 mm. The hip was reduced and taken through a range of motion. The hip was stable in all positions. There was good soft tissue tension and appropriate leg lengths. Next, the hip was carefully dislocated. All trials were removed. Final implant chosen was an Accolade II size 8 with a 127-degree neck. This was impacted into the femoral canal without difficulty. This stem was stable with good anteversion. A 40 +0 Biolox ceramic V40 femoral head with an appropriate adapter sleeve was chosen. This was impacted on to the femoral neck. Lesser troch to the center of the femoral head final measurement was 70 mm. The hip was reduced and taken through a range of motion. The hip was stable in all positions. There was good soft tissue tension and appropriate leg lengths. The hip was copiously irrigated with sterile saline. Previously tagged tendons were reapproximated to the posterolateral femur using 2 trochanteric drill holes. The lateral fascial layer was closed using interrupted #1 Vicryls. The rest of the incision was closed in a layered fashion using 0 and 2-0 Vicryls. Skin was closed with 3-0 Monocryl and Dermabond. Sterile Adaptic, 4x4s, and paper tape were used to cover the incision. The patient's anesthesia was reversed without difficulty. He was taken to the PACU in stable condition. Intended weightbearing will be weightbearing as tolerated. Intended DVT prophylaxis will be Coumadin with a Lovenox bridge. [id number]/[facility] #: [id number] RUTH
--- NOTE | 2018-08-29 16:12 | PN ---
Hospitalist Progress Note Date of Service: 08/29/18 HOSPITALIST ADDENDUM Mr. Fishman is a 73yo M with PMH of HTN, HLD, SHAW, BPH, who was admitted for elective left MATTHIEU. VS remain stable with controlled BP. Hospitalist service will sign off. Please don't hesitate to contact us with any questions.
[2018-08-29] MEDS ORDERED: Warfarin TAB(*) 4 MG PO ONE (17:00)
[2018-08-29] MEDS: CMC: Pravastatin (NF) 20 MG TAB PO SCH (17:33)
[2018-08-30 06:07] LABS: Hematocrit 30 % (42-52); Hemoglobin 10.1 g/dl (14.0-18.0); Mean Platelet Volume 7.4 um3 (7.4-10.4); Platelet Count 242 10^3/ul (150-450)
[2018-08-30 06:26] LABS: INR 1.23 (0.77-1.02)
[2018-08-30] MEDS: oxyCODONE/Acetamin 5/325 MG* TAB PO PRN ×4 (07:36→20:56)
[2018-08-30] MEDS: Docusate CAP* 100 MG PO SCH ×2 (07:37→20:50)
[2018-08-30] MEDS: Magnesium Hydroxide LIQ* 30 ML UDC PO SCH ×2 (07:51→21:26)
[2018-08-30] MEDS ORDERED: DILTIAZEM HCL PO SCH (09:00)
[2018-08-30] MEDS: Cholecalciferol TAB* 1000 UNITS PO SCH (09:13)
[2018-08-30] MEDS: Diltiazem CD CAP* 240 MG PO SCH (09:13)
[2018-08-30] MEDS: Lisinopril TAB* 5 MG PO SCH (09:13)
[2018-08-30] MEDS: Enoxaparin(*) 40 MG/0.4 ML SYR SUBCUT SCH (11:54)
--- NOTE | 2018-08-30 14:42 | PN ---
Subjective Date of Service: 08/30/18 Interval History: HOSPITALIST PROGRESS NOTE Patient seen and examined at bedside. Feels well, offers no complaints. Family History: Unchanged from Admission Social History: Unchanged from Admission Past Medical History: Unchanged from Admission Objective Active Medications: Acetaminophen (Tylenol Tab*) 650 mg PO Q8H PRN PRN Reason: PAIN OR TEMPERATURE Bisacodyl (Dulcolax Supp*) 10 mg [place] DAILY PRN PRN Reason: constipation Cholecalciferol (Vitamin D Tab*) 2,000 units PO QAM [facility] Last Admin: 08/30/18 09:13 Dose: 2,000 units Cyclobenzaprine HCl (Flexeril Tab*) 5 mg PO TID PRN PRN Reason: SPASMS Diltiazem HCl (Cardizem Cd Cap*) 240 mg PO DAILY [facility] Last Admin: 08/30/18 09:13 Dose: 240 mg Diphenhydramine HCl (Benadryl Iv*) 25 mg IV Q6H PRN PRN Reason: itching Docusate Sodium (Colace Cap*) 100 mg PO BID [facility] Last Admin: 08/30/18 07:37 Dose: 100 mg Enoxaparin Sodium (Lovenox(*)) 40 mg SUBCUT Q24H [facility] Last Admin: 08/30/18 11:54 Dose: 40 mg Lisinopril (Prinivil Tab*) 10 mg PO QAM [facility] Last Admin: 08/30/18 09:13 Dose: 10 mg Magnesium Hydroxide (Milk Of Magnesia Liq*) 30 ml PO BID [facility] Last Admin: 08/30/18 07:51 Dose: Not Given Magnesium Hydroxide (Milk Of Magnesia Liq*) 30 ml PO Q6H PRN PRN Reason: constipation Morphine Sulfate (Morphine Vial*) 2 mg IV Q2H PRN PRN Reason: PAIN - SEVERE Ondansetron HCl (Zofran Inj*) 4 mg IV Q6H PRN PRN Reason: nausea Oxycodone HCl (Roxycodone Tab*) 10 mg PO Q4H PRN PRN Reason: PAIN - SEVERE Oxycodone/Acetaminophen (Percocet 5/325 Tab*) 1 tab PO Q4H PRN PRN Reason: PAIN Last Admin: 08/29/18 23:43 Dose: 1 tab Oxycodone/Acetaminophen (Percocet 5/325 Tab*) 2 tab PO Q4H PRN PRN Reason: PAIN Last Admin: 08/30/18 11:58 Dose: 2 tab Polyethylene Glycol/Electrolytes (Miralax*) 17 gm PO DAILY PRN PRN Reason: Constipation Pravastatin Sodium (Pravachol (Nf)) 10 mg PO QPM [facility] Last Admin: 08/29/18 17:33 Dose: 10 mg Triamterene/HCTZ (Dyazide Cap*) 1 cap PO BEDTIME [facility] Vital Signs - 8 hr 08/30/18 08/30/18 08/30/18 07:17 07:36 08:00 Temperature 99.3 F Pulse Rate 100 Respiratory 18 20 20 Rate Blood Pressure 127/63 (mmHg) O2 Sat by Pulse 94 94 Oximetry 08/30/18 08/30/18 08/30/18 10:00 11:07 11:55 Temperature 97.9 F Pulse Rate 96 Respiratory 20 20 18 Rate Blood Pressure 103/51 (mmHg) O2 Sat by Pulse 94 92 Oximetry 08/30/18 11:58 Temperature Pulse Rate Respiratory 18 Rate Blood Pressure (mmHg) O2 Sat by Pulse Oximetry Oxygen Devices in Use Now: None Appearance: Morbid obese gentleman sitting up in bed in [facility]. Eyes: No Scleral Icterus Ears/Nose/Mouth/Throat: Mucous Membranes Moist Neck: Trachea Midline Respiratory: Symmetrical Chest Expansion and Respiratory Effort, Clear to Auscultation Cardiovascular: NL Sounds; No Murmurs; No JVD, RRR Neurological: Alert and Oriented x 3, NL Muscle Strength and Tone Result Diagrams: 08/30/18 05:45 08/30/18 05:45 Assess/Plan/Problems-Billing Assessment: Mr. Fishman is a 73yo M with PMH of HTN, HLD, SHAW, BPH, who was admitted for elective left MATTHIEU. - Patient Problems (1) History of total left hip arthroplasty Comment: - Management as per Ortho. (2) HTN (hypertension) Comment: - Trending up - will resume Lisinopril and lower dose Cardizem - monitor. (3) HLD (hyperlipidemia) Comment: - Continue Pravastatin. (4) DVT prophylaxis Comment: - Lovenox. (5) Full code status
--- NOTE | 2018-08-30 15:08 | PN ---
Progress Note - Progress Note Date of Service: 08/30/18 SOAP: Subjective: []Patient seen and examined OOB in chair. He is doing well and plans for discharge to home tomorrow. Denies chest pain, shortness of breath, dizziness, nausea. Objective: [] General: Well appearing, NAD LLE: Left hip dressing changed. Incision CDI, no surrounding erythema and thigh is soft. DF/PF intact. Sensation intact distally. DP 2+ Calves are supple and nontender without erythema, edema or palpable cords Assessment: []POD 2 sp left total hip arthroplasty Dr Alfaro 08/28 Plan: []WBAT PT/OT lovenox, coumadin 8 mg today Hyponatremia improving Plan to DC home tomorrow Vital Signs Temp 97.9 F 08/30/18 11:07 Pulse 96 08/30/18 11:07 Resp 18 08/30/18 11:58 BP 103/51 08/30/18 11:07 Pulse Ox 92 08/30/18 11:07 Intake & Output 08/29/18 08/30/18 08/30/18 18:59 06:59 18:59 Intake Total 2381 630 120 Output Total 1050 675 0 Balance 1331 -45 120 Intake: IVPB 1301 ABX - CEFAZOLIN 55 LR 1246 Oral 1080 630 120 Output: Urine 600 675 0 Laughlin 450 Other: Estimated Void Large # Bowel Movements 0 # Voids 1 Laboratory Last Values Hgb 10.1 g/dl (14.0-18.0) L 08/30/18 05:45 Hct 30 % (42-52) L 08/30/18 05:45 Plt Count 242 10^3/ul (150-450) 08/30/18 05:45 MPV 7.4 um3 (7.4-10.4) 08/30/18 05:45 INR (Anticoag Therapy) 1.23 (0.77-1.02) H 08/30/18 05:45 Sodium 133 mmol/L (135-145) L 08/30/18 05:45 Potassium 4.2 mmol/L (3.5-5.0) 08/29/18 06:10 Chloride 98 mmol/L (101-111) L 08/29/18 06:10 Carbon Dioxide 26 mmol/L (22-32) 10/10/18 06:10 Anion Gap 7 mmol/L (2-11) 08/29/18 06:10 BUN 21 mg/dL (6-24) 08/29/18 06:10 Creatinine 0.84 mg/dL (0.67-1.17) 08/29/18 06:10 Est GFR ( Amer) 108.7 (>60) 08/29/18 06:10 Est GFR (Non-Af Amer) 89.8 (>60) 08/29/18 06:10 BUN/Creatinine Ratio 25.0 (8-20) H 08/29/18 06:10 Glucose 194 mg/dL (70-100) H 08/29/18 06:10 Calcium 8.8 mg/dL (8.6-10.3) 08/29/18 06:10
[2018-08-30] MEDS ORDERED: Warfarin TAB(*) 4 MG PO ONE (17:00)
[2018-08-30] MEDS: CMC: Pravastatin (NF) 20 MG TAB PO SCH (18:15)
[2018-08-30] MEDS ORDERED: Triamterene/HCTZ 37.5-25 MG* CAP PO SCH (21:00)
[2018-08-31 07:18] LABS: Hematocrit 30 % (42-52); Hemoglobin 10.3 g/dl (14.0-18.0); Mean Platelet Volume 7.3 um3 (7.4-10.4); Platelet Count 253 10^3/ul (150-450)
[2018-08-31 07:38] LABS: INR 1.5 (0.77-1.02)
[2018-08-31] MEDS: Lisinopril TAB* 5 MG PO SCH (08:19)
[2018-08-31] MEDS: Docusate CAP* 100 MG PO SCH (08:19)
[2018-08-31] MEDS: Diltiazem CD CAP* 240 MG PO SCH (08:19)
[2018-08-31] MEDS: Magnesium Hydroxide LIQ* 30 ML UDC PO SCH (08:19)
[2018-08-31] MEDS: Cholecalciferol TAB* 1000 UNITS PO SCH (08:19)
--- NOTE | 2018-08-31 08:55 | PN ---
Progress Note - Progress Note Date of Service: 08/31/18 SOAP: Subjective: 73 y/o male s/p L MATTHIEU by Dr. Alfaro 08/29/2018. Patient working well with PT, pain medication controlling pain with minimal SEs. VSS, afebrile overnight. Feels OK for Dc to home today Objective: General- Well appearing, NAD, AO resting in chair comfortably MSK- LLE- DF/PF = b/l, PT 2+, negative homans sign, dressing changed, + ecchymosis over incision, dried blood on gauze, no draining noted. redressed. thigh soft, non-tender. Vital Signs Temp 98.2 F 08/31/18 07:11 Pulse 98 08/31/18 07:11 Resp 17 08/31/18 07:11 BP 123/66 08/31/18 07:11 Pulse Ox 95 08/31/18 07:11 Intake & Output 08/30/18 08/31/18 08/31/18 18:59 06:59 18:59 Intake Total 120 900 Output Total 0 1050 300 Balance 120 -150 -300 Intake: Oral 120 900 Output: Urine 0 1050 300 Other: Estimated Void Medium Date of Last Bowel 08/31 Movement # Bowel Movements 1 Estimated Stool Amount Small # Voids 2 Assessment: Stable 73 y/o male s/p L MATTHIEU by Dr. Alfaro 08/29/2018. Plan: - DVT prophylaxis- lovenox, coumadin at home - Continue PT/ OT - Follow up with Dr. Alfaro within 10-14 days - H&H - stable - post-op IV ABX - completed - D/C to home today, friends staying with patient, hip precautions reviewed to be strictly kept. Acetaminophen (Tylenol Tab*) 650 mg PO Q8H PRN PRN Reason: PAIN OR TEMPERATURE Bisacodyl (Dulcolax Supp*) 10 mg [place] DAILY PRN PRN Reason: constipation Cholecalciferol (Vitamin D Tab*) 2,000 units PO QAM [facility] Last Admin: 08/31/18 08:19 Dose: 2,000 units Cyclobenzaprine HCl (Flexeril Tab*) 5 mg PO TID PRN PRN Reason: SPASMS Diltiazem HCl (Cardizem Cd Cap*) 240 mg PO DAILY [facility] Last Admin: 08/31/18 08:19 Dose: 240 mg Diphenhydramine HCl (Benadryl Iv*) 25 mg IV Q6H PRN PRN Reason: itching Docusate Sodium (Colace Cap*) 100 mg PO BID [facility] Last Admin: 08/31/18 08:19 Dose: 100 mg Enoxaparin Sodium (Lovenox(*)) 40 mg SUBCUT Q24H [facility] Last Admin: 08/30/18 11:54 Dose: 40 mg Lisinopril (Prinivil Tab*) 10 mg PO QAM [facility] Last Admin: 08/31/18 08:19 Dose: 10 mg Magnesium Hydroxide (Milk Of Magnesia Liq*) 30 ml PO BID [facility] Last Admin: 08/31/18 08:19 Dose: 30 ml Magnesium Hydroxide (Milk Of Magnesia Liq*) 30 ml PO Q6H PRN PRN Reason: constipation Morphine Sulfate (Morphine Vial*) 2 mg IV Q2H PRN PRN Reason: PAIN - SEVERE Ondansetron HCl (Zofran Inj*) 4 mg IV Q6H PRN PRN Reason: nausea Oxycodone HCl (Roxycodone Tab*) 10 mg PO Q4H PRN PRN Reason: PAIN - SEVERE Oxycodone/Acetaminophen (Percocet 5/325 Tab*) 1 tab PO Q4H PRN PRN Reason: PAIN Last Admin: 08/30/18 20:56 Dose: 1 tab Oxycodone/Acetaminophen (Percocet 5/325 Tab*) 2 tab PO Q4H PRN PRN Reason: PAIN Last Admin: 08/30/18 16:22 Dose: 2 tab Polyethylene Glycol/Electrolytes (Miralax*) 17 gm PO DAILY PRN PRN Reason: Constipation Pravastatin Sodium (Pravachol (Nf)) 10 mg PO QPM [facility] Last Admin: 08/30/18 18:15 Dose: 10 mg Triamterene/HCTZ (Dyazide Cap*) 1 cap PO BEDTIME [facility] Last Admin: 08/30/18 20:50 Dose: 1 cap
[2018-08-31 11:29] VITALS: BP 118/56
== END 2018-08-31 13:50 | disposition home health service (06) | DRG 470 ==
LOC: AA 09:20 → SSU 18:30
PROVIDERS: ADMIT Orthopaedic Surgery Adult Reconstructive Orthopaedic Surgery; ATTEND Orthopaedic Surgery Adult Reconstructive Orthopaedic Surgery
PROC: 0SRB04A Replacement of Left Hip Joint with Ceramic on Polyethylene Synthetic Substitute, Uncemented, Open Approach (ICD-10-PCS; principal; 2018-08-28 12:00)
DX: M16.12 Unilateral primary osteoarthritis, left hip (principal); Z68.42 Body mass index [BMI] 45.0-49.9, adult; N13.8 Other obstructive and reflux uropathy; E87.1 Hypo-osmolality and hyponatremia; G47.33 Obstructive sleep apnea (adult) (pediatric); R00.1 Bradycardia, unspecified; E66.9 Obesity, unspecified; I10 Essential (primary) hypertension; Z90.49 Acquired absence of other specified parts of digestive tract; Z82.49 Family history of ischemic heart disease and other diseases of the circulatory system; Z82.3 Family history of stroke; Z80.0 Family history of malignant neoplasm of digestive organs; Z72.89 Other problems related to lifestyle; Z87.891 Personal history of nicotine dependence; N40.1 Benign prostatic hyperplasia with lower urinary tract symptoms; Z23 Encounter for immunization; M25.752 Osteophyte, left hip; E78.00 Pure hypercholesterolemia, unspecified
CPT/HCPCS: 36415; 72170; 80048; 84300; 85014; 85018; 85049; 85610; 88304; 88311; 90686; A9270-GY; C1713; C1776; G8978-GP-CI; G8978-GP-CJ; G8979-GP-CI; G8980-GP-CI; G8987-GO-CJ; G8988-GO-CI; J0690; J1100; J1650; J1885; J2250; J2405; J2704; J3010

== ENCOUNTER 2023-10-20 13:24 | Inpatient (IN) ==
[2023-10-20 15:22] LABS: ABS Basophils 0.1 10^3/uL (0.0-0.1); ABS Eosinophils 0.1 10^3/uL (0.0-0.5); ABS Lymphocytes 0.8 10^3/uL (1.0-4.8); ABS Monocytes 0.7 10^3/uL (0.0-1.1); ABS Neutrophils 13.1 10^3/uL (1.5-7.6); ABS Nucleated RBC 0.01 10^3/ul; Eosinophil % 0.6 %; Hematocrit 39.2 % (38-53); Hemoglobin 13.5 g/dL (13.2-16.3); Lymphocyte % 5.7 %; Mean Corpuscular Hemoglobin 30.1 pg (27-33); Mean Corpuscular Hgb Conc 34.5 g/dL (31-36); Mean Corpuscular Volume 87.2 fL (80-97); Mean Platelet Volume 7.7 fL (7.5-11.2); Nucleated Red Blood Cells % 0.1 %/100WBC (0.0-0.8); Platelet Count 235 10^3/uL (150-450); Red Blood Count 4.49 10^6/uL (4.06-5.63); White Blood Count 14.8 10^3/uL (3.6-10.2)
[2023-10-20 15:47] LABS: Albumin 4.2 g/dL (3.2-5.2); Albumin/Globulin Ratio 1.8 (1-3); Calcium 9.4 mg/dL (8.6-10.3); Creatinine, Serum 0.96 mg/dL (0.67-1.17); Globulin 2.4 g/dL (2-4); Potassium 3.9 mmol/L (3.5-5.0); Total Protein 6.6 g/dL (6.4-8.9); eGFR CKD-EPI 81.4 (>60)
[2023-10-20] MEDS ORDERED: Naloxone Nasal Spray 4 MG/0.1 ML NASAL.SPR INTRANASAL PRN (15:52)
[2023-10-20] MEDS ORDERED: HYDROmorphone 1 MG/1 ML SYRINGE IV PRN (16:02)
[2023-10-20] MEDS: Morphine 2 MG/ML SYRINGE IV PRN ×2 (16:12→22:48)
[2023-10-20] MEDS ORDERED: NS 0.9% 1000 ml BAG 1,000 ML IV SCH (17:00)
[2023-10-20] MEDS ORDERED: Enoxaparin 40 MG/0.4 ML SYR SUBCUT ONE (17:27)
[2023-10-20] MEDS: Acetaminophen IV 1 GM/100ML 1,000 MG/100 ML BAG IV SCH ×2 (17:30→22:54)
[2023-10-20] MEDS ORDERED: Potassium Chlor 20 meq TAB.ER PO ONE (20:35)
[2023-10-20 22:33] LABS: Ferritin 292.9 ng/mL (24-336)
[2023-10-21] MEDS: Acetaminophen IV 1 GM/100ML 1,000 MG/100 ML BAG IV SCH ×2 (05:21→12:17)
[2023-10-21 06:05] LABS: ABS Basophils 0.1 10^3/uL (0.0-0.1); ABS Eosinophils 0.4 10^3/uL (0.0-0.5); ABS Lymphocytes 0.8 10^3/uL (1.0-4.8); ABS Monocytes 0.9 10^3/uL (0.0-1.1); ABS Neutrophils 10.2 10^3/uL (1.5-7.6); Eosinophil % 3.3 %; Hematocrit 36.3 % (38-53); Hemoglobin 12.4 g/dL (13.2-16.3); Lymphocyte % 6.2 %; Mean Corpuscular Hemoglobin 29.7 pg (27-33); Mean Corpuscular Hgb Conc 34.3 g/dL (31-36); Mean Corpuscular Volume 86.8 fL (80-97); Mean Platelet Volume 7.7 fL (7.5-11.2); Platelet Count 198 10^3/uL (150-450); Red Blood Count 4.18 10^6/uL (4.06-5.63); Red Cell Distribution Width 14.7 % (12-17); White Blood Count 12.3 10^3/uL (3.6-10.2)
[2023-10-21 06:26] LABS: Calcium 8.7 mg/dL (8.6-10.3); Creatinine, Serum 0.89 mg/dL (0.67-1.17); Magnesium 1.8 mg/dL (1.9-2.7); Potassium 4.1 mmol/L (3.5-5.0); eGFR CKD-EPI 88.3 (>60)
[2023-10-21] MEDS: Morphine 2 MG/ML SYRINGE IV PRN ×2 (09:12→17:00)
[2023-10-21] MEDS: Iron Sucrose 200 MG in NS 0.9% 100 ml BAG 100 ML IVPB SCH (13:39)
[2023-10-22] MEDS: Morphine 2 MG/ML SYRINGE IV PRN (06:06)
[2023-10-22 07:50] LABS: ABS Basophils 0.1 10^3/uL (0.0-0.1); ABS Eosinophils 0.3 10^3/uL (0.0-0.5); ABS Lymphocytes 0.8 10^3/uL (1.0-4.8); ABS Monocytes 1.2 10^3/uL (0.0-1.1); ABS Neutrophils 13.2 10^3/uL (1.5-7.6); ABS Nucleated RBC 0.01 10^3/ul; Eosinophil % 1.8 %; Hematocrit 40.7 % (38-53); Hemoglobin 13.7 g/dL (13.2-16.3); Lymphocyte % 5.2 %; Mean Corpuscular Hgb Conc 33.7 g/dL (31-36); Mean Corpuscular Volume 88.8 fL (80-97); Mean Platelet Volume 8.7 fL (7.5-11.2); Platelet Count 193 10^3/uL (150-450); Red Blood Count 4.58 10^6/uL (4.06-5.63); White Blood Count 15.6 10^3/uL (3.6-10.2)
[2023-10-22 08:07] LABS: Calcium 9.1 mg/dL (8.6-10.3); Creatinine, Serum 0.91 mg/dL (0.67-1.17); Magnesium 1.9 mg/dL (1.9-2.7); Potassium 3.9 mmol/L (3.5-5.0); eGFR CKD-EPI 86.8 (>60)
[2023-10-22 09:09] LABS: INR 1.26 (0.83-1.13)
[2023-10-22] MEDS: Iron Sucrose 200 MG in NS 0.9% 100 ml BAG 100 ML IVPB SCH (09:31)
[2023-10-22] MEDS ORDERED: Rocuronium 50 mg VIAL 10 mg/ml 5 ml VIAL (50 mg) ONE (11:04)
[2023-10-22] MEDS ORDERED: fentaNYL 100 mcg/2 ml 50 MCG/ML VIAL ONE (11:04)
[2023-10-22] MEDS ORDERED: Ondansetron 4 mg VIAL 2 MG/ML 2 ml VIAL ONE (11:05)
[2023-10-22] MEDS ORDERED: Propofol 10 MG/ML 20 ML BTL ONE (11:05)
[2023-10-22] MEDS ORDERED: Sodium Chloride 0.9% 10 ML ONE (11:05)
[2023-10-22] MEDS ORDERED: KETAMINE HCL 10 MG/ML 20 ml VIAL (200 MG) ONE (11:05)
[2023-10-22] MEDS ORDERED: Lidocaine 2% PF 5 ML VIAL ONE (11:05)
[2023-10-22] MEDS ORDERED: Phenylephrine IV 10 MG/ML 1 ml VIAL ONE (11:05)
[2023-10-22] MEDS ORDERED: Bupivacaine 0.5% SDV PF 30ML VIAL ONE ×2 (11:14→12:13)
[2023-10-22] MEDS ORDERED: KCL 10 MEQ/50 ML IVPREMIX 10 MEQ/50 ML BAG IV ONE (11:46)
[2023-10-22] MEDS ORDERED: Ondansetron 4 mg VIAL 2 MG/ML 2 ml VIAL IV PRN (12:13)
[2023-10-22] MEDS ORDERED: fentaNYL 100 mcg/2 ml 50 MCG/ML VIAL IV PRN (12:13)
[2023-10-22] MEDS ORDERED: Naloxone 0.4 mg VIAL 0.4 mg/ml 1 ml VIAL IV PRN (12:13)
[2023-10-22] MEDS ORDERED: HYDROmorphone 1 MG/1 ML SYRINGE IV PRN (12:13)
[2023-10-22] MEDS ORDERED: Acetaminophen IV 1 GM/100ML 1,000 MG/100 ML BAG IV PRN (12:13)
[2023-10-22] MEDS ORDERED: ceFAZolin 2 GM in NS PREMIX 2 GM/100 ML BAG IVPB ONE (12:22)
[2023-10-22 17:39] LABS: High Sensitivity Troponin 1 Hr 427 pg/mL (<20)
[2023-10-22] MEDS ORDERED: Hyaluronidase HUMAN 15 UNIT in Sodium Chloride 0.9% 0.9 ML INTRADERM ONE (21:59)
[2023-10-22] MEDS ORDERED: Potassium EFFERVES 25 meq TAB PO ONE (21:59)
[2023-10-23 07:19] LABS: ABS Basophils 0.1 10^3/uL (0.0-0.1); ABS Eosinophils 0.1 10^3/uL (0.0-0.5); ABS Lymphocytes 1.1 10^3/uL (1.0-4.8); ABS Monocytes 1.2 10^3/uL (0.0-1.1); ABS Neutrophils 16.7 10^3/uL (1.5-7.6); ABS Nucleated RBC 0.01 10^3/ul; Eosinophil % 0.5 %; Hematocrit 38.1 % (38-53); Hemoglobin 12.8 g/dL (13.2-16.3); Lymphocyte % 5.6 %; Mean Corpuscular Hemoglobin 29.7 pg (27-33); Mean Corpuscular Hgb Conc 33.5 g/dL (31-36); Mean Corpuscular Volume 88.8 fL (80-97); Mean Platelet Volume 8.3 fL (7.5-11.2); Nucleated Red Blood Cells % 0.1 %/100WBC (0.0-0.8); Platelet Count 222 10^3/uL (150-450); Red Blood Count 4.29 10^6/uL (4.06-5.63); Red Cell Distribution Width 15.6 % (12-17); White Blood Count 19.3 10^3/uL (3.6-10.2)
[2023-10-23 07:36] LABS: Calcium 8.7 mg/dL (8.6-10.3); Creatinine, Serum 1.35 mg/dL (0.67-1.17); Magnesium 1.9 mg/dL (1.9-2.7); Potassium 4.5 mmol/L (3.5-5.0); eGFR CKD-EPI 54.1 (>60)
[2023-10-23 08:06] LABS: Albumin 3.5 g/dL (3.2-5.2); Albumin/Globulin Ratio 1.5 (1-3); Calcium 8.8 mg/dL (8.6-10.3); Creatinine, Serum 1.36 mg/dL (0.67-1.17); Globulin 2.3 g/dL (2-4); Potassium 4.6 mmol/L (3.5-5.0); Total Bilirubin 1.3 mg/dL (0.2-1.0); Total Protein 5.8 g/dL (6.4-8.9); eGFR CKD-EPI 53.6 (>60)
[2023-10-23] MEDS: Enoxaparin 40 MG/0.4 ML SYR SUBCUT SCH (09:39)
[2023-10-23] MEDS: Iron Sucrose 200 MG in NS 0.9% 100 ml BAG 100 ML IVPB SCH (09:40)
[2023-10-23] MEDS: Morphine 2 MG/ML SYRINGE IV PRN ×2 (12:43→21:38)
[2023-10-24] MEDS: Metoprolol Tartrate 5 mg VIAL 5 ml VIAL (1 mg/ml) IV PRN ×3 (04:08→14:50)
[2023-10-24] MEDS ORDERED: Morphine 2 MG/ML SYRINGE IV PRN (07:43)
[2023-10-24 09:28] LABS: ABS Eosinophils 0.5 10^3/uL (0.0-0.5); ABS Lymphocytes 1.1 10^3/uL (1.0-4.8); ABS Monocytes 1.2 10^3/uL (0.0-1.1); ABS Neutrophils 10.9 10^3/uL (1.5-7.6); Hematocrit 34.1 % (38-53); Hemoglobin 11.9 g/dL (13.2-16.3); Lymphocyte % 8.1 %; Mean Corpuscular Hemoglobin 30.6 pg (27-33); Mean Corpuscular Volume 87.5 fL (80-97); Mean Platelet Volume 8.6 fL (7.5-11.2); Platelet Count 236 10^3/uL (150-450); Red Blood Count 3.89 10^6/uL (4.06-5.63); Red Cell Distribution Width 15.1 % (12-17); White Blood Count 13.8 10^3/uL (3.6-10.2)
[2023-10-24] MEDS: Enoxaparin 40 MG/0.4 ML SYR SUBCUT SCH (09:40)
[2023-10-24] MEDS: Iron Sucrose 200 MG in NS 0.9% 100 ml BAG 100 ML IVPB SCH (09:48)
[2023-10-24 09:57] LABS: Albumin 3.3 g/dL (3.2-5.2); Albumin/Globulin Ratio 1.3 (1-3); Calcium 8.4 mg/dL (8.6-10.3); Creatinine, Serum 1.3 mg/dL (0.67-1.17); Globulin 2.5 g/dL (2-4); Magnesium 2.1 mg/dL (1.9-2.7); Potassium 3.7 mmol/L (3.5-5.0); Total Protein 5.8 g/dL (6.4-8.9); eGFR CKD-EPI 56.6 (>60)
[2023-10-24 10:09] LABS: TSH Ultra Thyroid Stim Horm 1.42 mcIU/mL (0.34-5.60)
[2023-10-24 10:11] LABS: Free T4 1.48 ng/dL (0.61-1.12)
[2023-10-24] MEDS ORDERED: Lactated Ringers 1000 ml BAG 500 ML IV ONE (10:17)
[2023-10-24] MEDS: Acetaminophen IV 1 GM/100ML 1,000 MG/100 ML BAG IV SCH ×2 (10:32→17:15)
[2023-10-24] MEDS ORDERED: Digoxin IV 0.5 MG/2 ML AMP (0.25 MG/ML) IV SLOW PU ONE (10:45)
[2023-10-24 13:03] LABS: High Sensitivity Troponin 1 Hr 167 pg/mL (<20)
[2023-10-24] MEDS ORDERED: Lactated Ringers 1000 ml BAG 1,000 ML IV ONE (13:11)
[2023-10-24] MEDS ORDERED: Metoprolol Tartrate 5 mg VIAL 5 ml VIAL (1 mg/ml) IV ONE (13:13)
[2023-10-25] MEDS: Acetaminophen IV 1 GM/100ML 1,000 MG/100 ML BAG IV SCH ×3 (01:52→17:55)
[2023-10-25 06:01] LABS: Hematocrit 32.3 % (38-53); Hemoglobin 11.1 g/dL (13.2-16.3); Mean Corpuscular Hemoglobin 30.3 pg (27-33); Mean Corpuscular Hgb Conc 34.5 g/dL (31-36); Mean Platelet Volume 8.4 fL (7.5-11.2); Platelet Count 214 10^3/uL (150-450); Red Blood Count 3.67 10^6/uL (4.06-5.63); Red Cell Distribution Width 15.4 % (12-17); White Blood Count 11.5 10^3/uL (3.6-10.2)
[2023-10-25 06:46] LABS: Calcium 8.3 mg/dL (8.6-10.3); Creatinine, Serum 1.14 mg/dL (0.67-1.17); Magnesium 2.2 mg/dL (1.9-2.7); Potassium 3.9 mmol/L (3.5-5.0); eGFR CKD-EPI 66.2 (>60)
[2023-10-25] MEDS: Iron Sucrose 200 MG in NS 0.9% 100 ml BAG 100 ML IVPB SCH (10:41)
[2023-10-25] MEDS ORDERED: Iohexol 350 (CONTRAST) 500 ML MDV IV ONE (11:37)
[2023-10-25] MEDS ORDERED: Lactated Ringers 1000 ml BAG 1,000 ML IV ONE (13:29)
[2023-10-25] MEDS ORDERED: NS 0.9% 1000 ml BAG 1,000 ML IV SCH (13:45)
[2023-10-26] MEDS: Acetaminophen IV 1 GM/100ML 1,000 MG/100 ML BAG IV SCH ×3 (00:59→16:44)
[2023-10-26] MEDS ORDERED: OLANZapine IM (NF) 10 MG VIAL IM ONE (02:14)
[2023-10-26 06:23] LABS: Hematocrit 31.9 % (38-53); Hemoglobin 11.1 g/dL (13.2-16.3); Mean Corpuscular Hemoglobin 30.7 pg (27-33); Mean Corpuscular Hgb Conc 34.8 g/dL (31-36); Mean Corpuscular Volume 88.3 fL (80-97); Mean Platelet Volume 8.2 fL (7.5-11.2); Platelet Count 226 10^3/uL (150-450); Red Blood Count 3.61 10^6/uL (4.06-5.63); Red Cell Distribution Width 15.5 % (12-17); White Blood Count 9.9 10^3/uL (3.6-10.2)
[2023-10-26 06:44] LABS: Calcium 8.1 mg/dL (8.6-10.3); Creatinine, Serum 1.06 mg/dL (0.67-1.17); Magnesium 2.1 mg/dL (1.9-2.7); Potassium 3.8 mmol/L (3.5-5.0); eGFR CKD-EPI 72.3 (>60)
[2023-10-26] MEDS ORDERED: Ferric Gluconate IV 250 MG in NS 0.9% 250 ml 200 ML IVPB ONE (09:08)
[2023-10-26] MEDS ORDERED: Senna TAB 8.6 mg TAB PO ONE (09:11)
[2023-10-26 09:46] LABS: ABS Eosinophils 0.6 10^3/uL (0.0-0.5); ABS Lymphocytes 1.5 10^3/uL (1.0-4.8); ABS Monocytes 0.9 10^3/uL (0.0-1.1); ABS Neutrophils 6.9 10^3/uL (1.5-7.6); Eosinophil % 5.9 %; Lymphocyte % 14.9 %
[2023-10-26] MEDS: Magnesium Hydroxide LIQ 30 ML UDC PO SCH ×2 (11:29→19:51)
[2023-10-27] MEDS: Acetaminophen IV 1 GM/100ML 1,000 MG/100 ML BAG IV SCH ×3 (01:13→20:06)
[2023-10-27 05:57] LABS: ABS Basophils 0.1 10^3/uL (0.0-0.1); ABS Eosinophils 0.6 10^3/uL (0.0-0.5); ABS Lymphocytes 1.5 10^3/uL (1.0-4.8); ABS Monocytes 0.9 10^3/uL (0.0-1.1); ABS Nucleated RBC 0.01 10^3/ul; Eosinophil % 5.3 %; Hemoglobin 11.5 g/dL (13.2-16.3); Lymphocyte % 12.3 %; Mean Corpuscular Hemoglobin 29.9 pg (27-33); Mean Corpuscular Hgb Conc 33.8 g/dL (31-36); Mean Corpuscular Volume 88.5 fL (80-97); Platelet Count 250 10^3/uL (150-450); Red Blood Count 3.85 10^6/uL (4.06-5.63); Red Cell Distribution Width 15.6 % (12-17); White Blood Count 12.1 10^3/uL (3.6-10.2)
[2023-10-27 06:14] LABS: Calcium 8.2 mg/dL (8.6-10.3); Creatinine, Serum 1.06 mg/dL (0.67-1.17); Magnesium 2.2 mg/dL (1.9-2.7); Potassium 4.1 mmol/L (3.5-5.0); eGFR CKD-EPI 72.3 (>60)
[2023-10-27] MEDS: Magnesium Hydroxide LIQ 30 ML UDC PO SCH ×2 (10:26→20:23)
[2023-10-28] MEDS: Acetaminophen IV 1 GM/100ML 1,000 MG/100 ML BAG IV SCH ×3 (02:56→17:28)
[2023-10-28 07:33] LABS: ABS Basophils 0.1 10^3/uL (0.0-0.1); ABS Eosinophils 0.6 10^3/uL (0.0-0.5); ABS Lymphocytes 1.5 10^3/uL (1.0-4.8); ABS Monocytes 0.8 10^3/uL (0.0-1.1); ABS Neutrophils 9.1 10^3/uL (1.5-7.6); ABS Nucleated RBC 0.01 10^3/ul; Eosinophil % 4.8 %; Hematocrit 33.1 % (38-53); Hemoglobin 11.1 g/dL (13.2-16.3); Lymphocyte % 12.2 %; Mean Corpuscular Hemoglobin 30.2 pg (27-33); Mean Corpuscular Hgb Conc 33.6 g/dL (31-36); Mean Platelet Volume 7.7 fL (7.5-11.2); Nucleated Red Blood Cells % 0.1 %/100WBC (0.0-0.8); Platelet Count 271 10^3/uL (150-450); Red Blood Count 3.68 10^6/uL (4.06-5.63); Red Cell Distribution Width 15.9 % (12-17)
[2023-10-28 07:50] LABS: Calcium 8.4 mg/dL (8.6-10.3); Creatinine, Serum 1.03 mg/dL (0.67-1.17); Magnesium 2.7 mg/dL (1.9-2.7); Potassium 4.7 mmol/L (3.5-5.0); eGFR CKD-EPI 74.8 (>60)
[2023-10-28] MEDS: Magnesium Hydroxide LIQ 30 ML UDC PO SCH ×2 (09:45→20:53)
[2023-10-29] MEDS: Acetaminophen IV 1 GM/100ML 1,000 MG/100 ML BAG IV SCH ×3 (03:29→18:00)
[2023-10-29] MEDS: Magnesium Hydroxide LIQ 30 ML UDC PO SCH ×2 (10:42→21:39)
[2023-10-30] MEDS: Acetaminophen IV 1 GM/100ML 1,000 MG/100 ML BAG IV SCH ×3 (03:24→17:06)
[2023-10-30 07:50] LABS: Hemoglobin 9.2 g/dL (13.2-16.3); Mean Corpuscular Hemoglobin 30.6 pg (27-33); Mean Corpuscular Hgb Conc 34.1 g/dL (31-36); Mean Corpuscular Volume 89.6 fL (80-97); Platelet Count 276 10^3/uL (150-450); Red Blood Count 3.01 10^6/uL (4.06-5.63); Red Cell Distribution Width 15.8 % (12-17); White Blood Count 11.4 10^3/uL (3.6-10.2)
[2023-10-30 08:07] LABS: Calcium 7.9 mg/dL (8.6-10.3); Creatinine, Serum 1.24 mg/dL (0.67-1.17); Potassium 4.2 mmol/L (3.5-5.0); eGFR CKD-EPI 59.9 (>60)
[2023-10-30] MEDS: Magnesium Hydroxide LIQ 30 ML UDC PO SCH (10:59)
[2023-10-30] MEDS ORDERED: Magnesium Hydroxide LIQ 30 ML UDC PO PRN (11:01)
[2023-10-30 15:51] LABS: Hematocrit 29.7 % (38-53); Hemoglobin 10.1 g/dL (13.2-16.3); Mean Corpuscular Hemoglobin 30.5 pg (27-33); Mean Corpuscular Volume 89.9 fL (80-97); Mean Platelet Volume 7.7 fL (7.5-11.2); Platelet Count 341 10^3/uL (150-450); Red Cell Distribution Width 15.7 % (12-17); White Blood Count 12.7 10^3/uL (3.6-10.2)
[2023-10-30 16:29] LABS: Albumin 3.3 g/dL (3.2-5.2); Albumin/Globulin Ratio 1.4 (1-3); Calcium 8.3 mg/dL (8.6-10.3); Creatinine, Serum 1.21 mg/dL (0.67-1.17); Globulin 2.4 g/dL (2-4); Magnesium 2.8 mg/dL (1.9-2.7); Potassium 4.7 mmol/L (3.5-5.0); Total Bilirubin 0.8 mg/dL (0.2-1.0); Total Protein 5.7 g/dL (6.4-8.9); eGFR CKD-EPI 61.7 (>60)
[2023-10-30 16:35] LABS: ABS Basophils 0.2 10^3/uL (0.0-0.1); ABS Eosinophils 0.8 10^3/uL (0.0-0.5); ABS Lymphocytes 1.9 10^3/uL (1.0-4.8); ABS Monocytes 0.8 10^3/uL (0.0-1.1); ABS Neutrophils 9.1 10^3/uL (1.5-7.6); Eosinophil % 6.1 %; Lymphocyte % 14.7 %
[2023-10-31] MEDS: Acetaminophen IV 1 GM/100ML 1,000 MG/100 ML BAG IV SCH (01:44)
[2023-10-31 12:38] LABS: Rapid COVID-19 Molecular Undetected (Undetected)
[2023-11-01 06:16] LABS: Hematocrit 29.4 % (38-53); Mean Corpuscular Hemoglobin 30.5 pg (27-33); Mean Corpuscular Hgb Conc 33.9 g/dL (31-36); Mean Corpuscular Volume 89.9 fL (80-97); Mean Platelet Volume 7.3 fL (7.5-11.2); Platelet Count 310 10^3/uL (150-450); Red Blood Count 3.26 10^6/uL (4.06-5.63); Red Cell Distribution Width 15.8 % (12-17); White Blood Count 12.7 10^3/uL (3.6-10.2)
[2023-11-01 06:57] LABS: Digoxin 0.7 ng/ml (0.8-2.0)
[2023-11-01 07:06] LABS: ABS Eosinophils 0.2 10^3/uL (0.0-0.5); ABS Lymphocytes 2.9 10^3/uL (1.0-4.8); ABS Monocytes 4.9 10^3/uL (0.0-1.1); ABS Neutrophils 4.7 10^3/uL (1.5-7.6); ABS Nucleated RBC 0.01 10^3/ul; Eosinophil % 1.3 %; Lymphocyte % 23.1 %; Nucleated Red Blood Cells % 0.1 %/100WBC (0.0-0.8); RBC Morphology Normal (Normal)
[2023-11-01 07:18] LABS: Calcium 8.4 mg/dL (8.6-10.3); Creatinine, Serum 1.16 mg/dL (0.67-1.17); Magnesium 2.4 mg/dL (1.9-2.7); eGFR CKD-EPI 64.9 (>60)
[2023-11-01 07:25] LABS: Potassium 4.6 mmol/L (3.5-5.0)
[2023-11-03 10:00] LABS: Rapid COVID-19 Molecular Undetected (Undetected)
[2023-11-03 10:33] VITALS: BP 119/52
== END 2023-11-03 12:28 | DRG 522 ==
LOC: ED 13:24 → EDHOLD 15:44 → SUATTDRO 15:44 → SSU 18:40 → MEDTELE 10-23 07:04
PROVIDERS: ADMIT Internal Medicine; ATTEND Internal Medicine